=== PATIENT | female | born 1970 | race Caucasian/White ===

== ENCOUNTER 2019-08-09 15:10 | Emergency (ER) | payer OTHER, SELFPAY ==
[2019-08-09 15:11] VITALS: BP 150/113; PULSE 81; RESP 16; TEMP 36.3; O2SAT 99; BMI 23.1
--- NOTE | 2019-08-09 15:24 | RAD_ITS ---
STUDY: X-RAY - RIGHT HAND REASON FOR EXAM: Female, 49 years old. SWING SET FELL ON PT WHILE MOWING. LACERATION TO INDEX FINGER, PAIN TECHNIQUE: 3 view(s) of the hand. COMPARISON: None. FINDINGS: Normal radiocarpal articulation. Normal distal radioulnar joint. Normal visualized carpal bones. Normal carpal articulations Normal carpometacarpal articulation of the thumb. Normal second through fifth carpometacarpal joints. Normal metacarpi. Normal metacarpophalangeal joint of the thumb. Normal interphalangeal joint of the thumb. Normal proximal and distal phalanges of the thumb. Normal metacarpophalangeal joints of the second through fifth fingers. Normal proximal and distal interphalangeal joints of the second through fifth fingers. Normal phalanges of the second through fifth fingers. Second digit soft tissue swelling. RAD/Hand Min 3 Views IMPRESSION: No acute osseous injury is evident. Electronically Signed: Markus Baltazar MD at 16:09 EDT Tel , Service support ,
--- NOTE | 2019-08-09 15:33 | ED.VIS.GEN ---
History of Present Illness Chief Complaint: Laceration Informant: Patient Onset: Today Narrative: She presents with laceration to her left thumb. She was mowing on a 0 turn mower and tried to move underneath a swing set. The swing set caught on the mower and the swing set fell on top of her. She has a V shaped laceration over the flexor surface of her left thumb. She is unsure of her last tetanus update. Past Medical History - Allergies and Home Meds Allergies/Adverse Reactions: Allergies pistachio nut Allergy (Verified 08/09/19 15:45) Swelling Primary Care Physician: Tana Mariee MD [Primary Care Provider] - Smoking Status: Never smoker Review of Systems General: Denies: Chills, Fever Eyes: Denies: Visual changes - bilaterally ENT: Denies: Bilateral ear pain Cardiovascular: Denies: Chest pain Respiratory: Denies: Dyspnea, Cough Gastrointestinal: Denies: Abdominal pain, Nausea, Vomiting, Diarrhea Genitourinary: Denies: Dysuria Musculoskeletal: Reports: Extremity Pain Skin: Reports: Wounds Neurological: Denies: Headache Hematologic: Denies: Easy bruising, Easy bleeding Allergy: Denies: Uticaria Physical Exam Vital Signs/Narrative: Vital Signs Temp Pulse Resp BP Pulse Ox 08/09/19 15:11 97.4 F L 81 16 150/113 H 99 Inital Vital Signs reviewed: Yes General: Well nourished, Well developed Head: Normocephalic ENT: Moist mucous membranes Neck: Supple Cardiovascular: Regular rate, Regular rhythm Respiratory: No distress, CTA bilaterally Abdomen: Soft, Nontender Extremities: - - Right forearm, hematoma with small abrasion noted to the proximal right forearm. Good range of motion. Right hand, skin abrasion/avulsion between the third and fourth finger webspace as well as over the extensor surface of the left index finger. No full-thickness lacerations that are amenable to suture. Left thumb, 8 cm total length laceration and complex pattern. There is a small skin flap that is separate and held only by a small skin stalk. Patient does have good range of motion of her left thumb. She does have decreased sensation over the pad of the left thumb. She is vaguely able to feel single-point pressure. Two-point discrimination is knocked out in this area. Neurological: Alert, Oriented x3 Diagnostic/Tx/Re-eval Impressions Hand X-Ray 08/09/19 15:40 IMPRESSION: No acute osseous injury is evident. Electronically Signed: Markus Baltazar MD at 16:10 EDT Tel , Service support , 08/09/19 15:24 Hand Min 3 Views [RAD] Stat 08/09/19 15:40 Hand Min 3 Views [RAD] Stat 08/09/19 16:35 Forearm 2 Views [RAD] Stat - Medical Decision Making Tetanus update was provided. Patient was given 1 tab of [place]am[place]. Left thumb was anesthetized with 4 cc of 2% lidocaine. This was performed in both digital and local block. Wound is cleansed. There is a separate skin flap held only by a loose piece of skin. I did advise the patient not sure if this flap will survive with intact blood flow. Skin was tacked back down with a combination of 5-0 and 4-0 nylon sutures. Due to a small arterial bleed 3 sutures with 5-0 rapid Vicryl were placed deep. ED Disposition - Plan for ED Patient: Disposition: Home or Assisted Living Diagnosis: Laceration, Nerve injury Instructions: ED Laceration Ext Sutr Stap Tape Prescriptions: Hydrocodone Bitart/Apap 5-325 [Chamois 5MG-325MG] 1 tablet PO Q6H PRN PRN 3 Days #10 tablet PRN Reason: Pain Transmission Status: Sent to [facility] Additional Instructions: Follow-up with hand surgery this week as discussed.
--- NOTE | 2019-08-09 15:40 | RAD_ITS ---
STUDY: X-RAY - LEFT HAND REASON FOR EXAM: Female, 49 years old. SWING SET FELL ON PT WHILE MOWING. LACERATION TO THUMB, PAIN TECHNIQUE: 3 view(s) of the hand. COMPARISON: None. FINDINGS: Normal radiocarpal articulation. Normal distal radioulnar joint. Normal visualized carpal bones. Normal carpal articulations Normal carpometacarpal articulation of the thumb. Normal second through fifth carpometacarpal joints. Normal metacarpi. Normal metacarpophalangeal joint of the thumb. Normal interphalangeal joint of the thumb. Normal proximal and distal phalanges of the thumb. Normal metacarpophalangeal joints of the second through fifth fingers. Normal proximal and distal interphalangeal joints of the second through fifth fingers. Normal phalanges of the second through fifth fingers. First digit soft tissue injury. RAD/Hand Min 3 Views IMPRESSION: No acute osseous injury is evident. Electronically Signed: Markus Baltazar MD at 16:10 EDT Tel , Service support ,
[2019-08-09] MEDS: HYDROcodone Bitartrate/Apap 5/325 Tablet PO (15:42)
[2019-08-09] MEDS: Diphth,Pertuss(Acell),Tet Vac 0.5 ML Vial IM (15:43)
--- NOTE | 2019-08-09 16:35 | RAD_ITS ---
STUDY: X-RAY - RIGHT RADIUS AND ULNA REASON FOR EXAM: Female, 49 years old. SWING SET FELL ON PT WHILE MOWING. STS, BRUISING TECHNIQUE: 2 view(s) of the forearm. COMPARISON: None. FINDINGS: There is no demonstrated soft tissue swelling. Normal visualized radius. Normal visualized ulna. RAD/Forearm 2 Views IMPRESSION: Normal x-ray examination of the radius and ulna. Electronically Signed: Gabe Cheng MD at 17:02 EDT , Service support ,
== END 2019-08-09 17:00 | disposition home or self-care (01) ==
LOC: ED 16:53
PROVIDERS: Emergency Provider Emergency Medicine; PCP Internal Medicine
DX: S61.012A Laceration without foreign body of left thumb without damage to nail, initial encounter (principal); S64.12XA Injury of median nerve at wrist and hand level of left arm, initial encounter; W20.8XXA Other cause of strike by thrown, projected or falling object, initial encounter; Y93.H9 Activity, other involving exterior property and land maintenance, building and construction; Y92.096 Garden or yard of other non-institutional residence as the place of occurrence of the external cause; Y99.9 Unspecified external cause status; Z23 Encounter for immunization
CPT/HCPCS: 12044; 73090; 73130; 90471; 90715; 99284

== ENCOUNTER → 2024-09-18 | Outpatient (CLI) | payer OTHER, SELFPAY ==
--- OUTSIDE RECORDS SUMMARY | 2024-09-18 19:51 | XMS RPT_ITS | CCD ---
Author Organization [facility] Care Team Providers Care Supervisor Publications Name Role Phone George LASSITER, Iván Najera Unavailable [phone] Kodi LASSITER, Delilah Primary Care Provider [phone] Kodi LASSITER, Delilah Primary Care Provider [phone] Kodi LASSITER, Delilah Primary Care Provider Older TOBACCO FARMWORKER.FRENCH PASTRY COOK, Yudi Unavailable [phone] GANTA, DELILAH Primary Care Unavailable TESTRAKE, VIOLET Attending Unavailable GANTA, DELILAH Primary Care Unavailable TESTRAKE, VIOLET Referring Unavailable DAX, CONSTANCE Referring Unavailable DAX, CONSTANCE Attending Unavailable GANTA, DELILAH Primary Care Unavailable DAX, CONSTANCE Referring Unavailable GANTA, DELILAH Primary Care Unavailable GANTA, DELILAH Attending Unavailable GANTA, DELILAH Primary Care Unavailable GANTA, DELILAH Primary Care Unavailable TESTRAKE, VIOLET Referring Unavailable GANTA, DELILAH Primary Care Unavailable OLDER, YUDI Referring Unavailable OLDER, YUDI Attending Unavailable GANTA, DELILAH Primary Care Unavailable GANTA, DELILAH Primary Care Unavailable TESTRAKE, VIOLET Referring Unavailable Kodi LASSITER, Dr. Fajardo Primary Care Provider [phone] Dr. Delilah Devries MD Referring Provider Alejandro Venegas Attending Provider Allergies Allergy Classification Reported Allergen(s) Allergy Type Date of Onset Reaction(s) Facility (1 source) PLANT POLLENS; Translations: [PLANT POLLENS] allergy to substance 0 [facility] Work Phone: (1 source) PISTACHIOS; Translations: [PISTACHIOS] food allergy 0 [facility] Work Phone: (20 sources) pistachio nut allergenic extract; Translations: [PISTACHIO NUT] Drug Allergy 9 Swelling [facility] (20 sources) Seasonal allergy; Translations: [SEASONAL ALLERGIES] Allergy to substance 3 Itching [facility] Work Phone: Medications Current Medications Medication Drug Class(es) Dates Sig (Normalized) Sig (Original) cholecalciferol 0.05 mg oral capsule (2 sources) Vitamin D Start: 08-24-2024 take 1 capsule by mouth once daily Cholecalciferol, Vitamin D3, (VITAMIN D-3) 50 mcg (2,000 unit) cap Take 1 capsule by mouth once daily. 08/24/2024 Active estradiol 0.1 mg/ml vaginal cream (10 sources) Estrogen Start: 06-12-2024 estradiol (ESTRACE) 0.01 % (0.1 mg/gram) vaginal cream Use 0.5g vaginally at bedtime for 2 weeks then 1-3 time/weeks for maintenance. 42.5 g 2 06/12/2024 Active multivitamin tablet (2 sources) Start: 08-24-2024 take 1 tablet by mouth once daily multivitamin tablet Take 1 tablet by mouth once daily. 08/24/2024 Active NEOMYCIN/POLYMYXIN B SULF/HC ([id number]-[id number]-EB TOPICAL) (20 sources) apply 1 drop(s) topically two times weekly NEOMYCIN/POLYMYXIN B SULF/HC (NEOMYCIN-POLYMYXI N-HC TOPICAL) Apply 1 Drop to affected area twice a week. Active apply 1 drop(s) topi gabe two times weekly NEOMYCIN/POLYMYXIN B SULF/HC (MTUXMOXS-ZSWKHQKZN-IA TOPICAL) Apply 1 Drop to affected area twice a week. 0 Active Comment on above: Apply 1 Drop to affe cted area twice a week. Completed/Discontinued Medications Medication Drug Class(es) Dates Sig (Normalized) Sig (Original) acetaminophen 500 mg oral tablet (1 source) Start: 08-11-2019 TYLENOL EXTRA STRENGTH 500 MG TABS 2 tablets as needed ACETAMINOPHEN [id number] Iván Vazquez MD acetaminophen 325 mg / HYDROcodone bitartrate 5 mg oral tablet (3 sources) Opioid Agonist Start: 08-09-2019 End: 08-12-2019 take 1 tablet by mouth every six hours as needed Hydrocodone-Acetami nophen Discontinued 1 TABLET PO EVERY 6 HOURS NEEDED 10 3 August 09, 2019 4:47pm August 12, 2019 12:02am Start: 08-09-2019 End: 08-12-2019 NORCO 5-325 MG TABS one tabl et every 6 hours HYDROCODONE-ACETAMINOPHEN [id number] Iván Vazquez MD dexamethasone 0.001 mg/mg / tobramycin 0.003 mg/mg ophthalmic ointment (20 sources) Aminoglycoside Antibacterial, Corticosteroid Start: 08-10-2019 TOBRADEX 0.3-0.1 % OINT 1 time weekly as directed TOBRAMYCIN-DEXAMETHASONE [id number] Marcela Burden Start: 08-29-2016 tobramycin-dex amethasone (TOBRADEX) ophthalmic ointment Use 1 application in both eyes daily at bedtime. 1 Tube 5 08/29/2016 Active Start: 08-29-2016 tobramycin-dex amethasone (TOBRADEX) ophthalmic ointment Use 1 application in both eyes daily at bedtime. 1 Tube 5 08/29/2016 Active Comment on above: Use 1 application in both eyes daily at bedtime. doxycycline monohydrate 50 mg oral tablet (20 sources) Tetracycline-class Drug Start: 08-09-2019 End: 09-18-2024 Doxycycline Monohydrate 50 mg tablet TAKE 1 TABLET ONCE DAILY 90 tablet 3 07/23/2024 08/24/2024 Discontinued Comment on above: TAKE 1 TABLET ONCE D AILY NORETHINDRONE (3 sources) Start: 08-10-2019 LOYDA 0.35 MG TABS 1 tablet once daily NORETHINDRONE [id number] Marcela Burden Start: 08-09-2019 take 0.35 mg by mout h once daily Norethindrone (Contraceptive) Active 0.35 MG PO DAILY August 09, 2019 3:45pm Problems Active Problems Problem Classification Problem Date Documented Date Episodic/Chronic Acquired foot deformities (4 sources) Hallux valgus (acquired), left foot; Translations: [Hallux valgus (acquired)] Onset: 07-16-2024 07-16-2024 Chronic Acquired foot deformities (4 sources) Hallux valgus (acquired), right foot; Translations: [Hallux valgus (acquired)] Onset: 07-16-2024 07-16-2024 Chronic Acquired foot deformities (2 sources) Bunion; Translations: [Bunion of unspecified foot] Onset: 08-24-2024 08-24-2024 Episodic Crushing injury or internal injury (1 source) Injury of radial blood vessel; Translations: [Unspecified injury of radial artery at wrist and hand level of left arm, initial encounter] Onset: 08-11-2019 08-11-2019 Episodic Immunizations and screening for infectious disease (13 sources) Patient encounter status; Translations: [Encounter for screening for human papillomavirus (HPV)] Onset: 08-24-2024 Episodic Nutritional deficiencies (1 source) Vitamin D deficiency; Translations: [Vitamin D deficiency, unspecified] 08-14-2024 Chronic Open wounds of extremities (1 source) Laceration of hand; Translations: [Laceration without foreign body of left hand, initial encounter] Onset: 08-11-2019 08-11-2019 Episodic Open wounds of head; neck; and trunk (2 sources) Laceration - injury; Translations: [Laceration] 08-10-2019 Episodic Other circulatory disease (2 sources) Abnormal peripheral pulse; Translations: [Other specified symptoms and signs involving the circulatory and respiratory systems] 07-16-2024 Episodic Other circulatory disease (1 source) Elevated blood pressure; Translations: [Elevated blood-pressure reading, without diagnosis of hypertension] 08-24-2024 Episodic Other circulatory disease (1 source) Elevated blood-pressure reading without diagnosis of hypertension; Translations: [Elevated blood-pressure reading, without diagnosis of hypertension] 09-07-2024 Episodic Other circulatory disease (2 sources) Elevated blood-pressure reading, without diagnosis of hypertension; Translations: [Elevated BP without diagnosis of hypertension] Onset: 08-24-2024 Episodic Other circulatory disease (1 source) Other specified symptoms and signs involving the circulatory and respiratory systems; Translations: [Diminished pulses in lower extremity] Onset: 07-16-2024 Episodic Other connective tissue disease (3 sources) Pain in both feet; Translations: [Pain in right foot] 07-14-2024 Episodic Other connective tissue disease (1 source) Pain in right foot; Translations: [Bilateral foot pain] Onset: 07-16-2024 Episodic Other connective tissue disease (1 source) Pain in left foot; Translations: [Bilateral foot pain] Onset: 07-16-2024 Episodic Other female genital disorders (1 source) Vaginal dryness; Translations: [Other specified noninflammatory disorders of vagina] 06-12-2024 Episodic Other inflammatory condition of skin (1 source) Ocular rosacea; 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] 08-24-2024 Chronic Other inflammatory condition of skin (1 source) Other rosacea; Translations: [Ocular rosacea] Onset: 08-24-2024 Chronic Other injuries and conditions due to external causes (1 source) Injury to digital nerve, upper limb; Translations: [Injury of digital nerve of unspecified finger, initial encounter] Onset: 08-11-2019 08-11-2019 Episodic Other injuries and conditions due to external causes (2 sources) Nerve injury; Translations: [Other injury of unspecified body region, initial encounter] 08-10-2019 Episodic Other liver diseases (1 source) Elevated liver enzymes level; Translations: [Abnormal levels of other serum enzymes] 09-07-2024 Episodic Other liver diseases (1 source) Abnormal levels of other serum enzymes; Translations: [Elevated liver enzymes] Onset: 09-07-2024 Episodic Other non-traumatic joint disorders (2 sources) Toe joint rigid 07-16-2024 Episodic Other screening for suspected conditions (not mental disorders or infectious disease) (1 source) Encounter for screening mammogram for malignant neoplasm of breast; Translations: [Encounter for screening mammogram for breast cancer] Onset: 06-12-2024 Episodic Residual codes; unclassified (1 source) Family history of malignant neoplasm of skin; Translations: [Family history of malignant neoplasm of other organs or systems] 08-24-2024 Episodic Residual codes; unclassified (1 source) Family history of malignant neoplasm of other organs or systems; Translations: [Family history of malignant neoplasm of skin] Onset: 08-24-2024 Episodic Screening and history of mental health and substance abuse codes (2 sources) Encounter for screening for depression; Translations: [Encounter for screening examination for other mental health and behavioral disorders] Onset: 08-24-2024 Episodic Unclassified (2 sources) Patient encounter status 06-12-2024 Unclassified (1 source) Hallux valgus of left foot 07-16-2024 Unclassified (1 source) Hallux valgus of right foot 07-16-2024 Varicose veins of lower extremity (2 sources) Varicose veins of lower extremity; Translations: [Asymptomatic varicose veins of right lower extremity] Onset: 08-24-2024 08-24-2024 Episodic Past or Other Problems Problem Classification Problem Date Documented Da te Episodic/Chronic Hypertension complicating ; childbirth and the puerperium (12 sources) Severe pre-eclampsia; Translations: [Severe pre-eclampsia, unspecified trimester] Onset: 04-05-2011 Resolved: 04-20-2011 04-20-2011 Episodic Inflammation; infection of eye (except that caused by tuberculosis or sexually transmitteddisease) (20 sources) Cicatrizing conjunctivitis; Translations: [Other conjunctivitis] Onset: 05-29-2017 05-29-2017 Episodic Nonmalignant breast conditions (12 sources) Inflammatory disorder of breast; Translations: [Mastitis without abscess] Onset: 04-08-2012 Resolved: 04-15-2012 04-15-2012 Episodic Other complications of ; puerperium affecting management of mother (12 sources) Other disorders of breast associated with and the puerperium; Translations: [Other and unspecified disorder of breast associated with childbirth, condition or complication] Onset: 04-08-2012 Resolved: 04-15-2012 04-15-2012 Episodic Other complications of (12 sources) Advanced maternal age ; Translations: [Elderly multigravida, unspecified as to episode of care or not applicable] Onset: 12-28-2010 Resolved: 04-20-2011 04-20-2011 Episodic Other connective tissue disease (20 sources) Dysfunction of posterior tibial tendon; Translations: [Posterior tibial tendinitis, unspecified leg] Onset: 06-24-2017 06-24-2017 Episodic Other connective tissue disease (20 sources) Plantar fasciitis of right foot; Translations: [Plantar fascial fibromatosis] Onset: 06-24-2017 06-24-2017 Episodic Other eye disorders (20 sources) Meibomian gland dysfunction of bilateral eyes; Translations: [Meibomian gland dysfunction right eye, upper and lower eyelids] Onset: 05-29-2017 05-29-2017 Episodic Other eye disorders (20 sources) Malposition of eyelashes; Translations: [Trichiasis without entropion right lower eyelid] Onset: 05-29-2017 05-29-2017 Episodic Other eye disorders (20 sources) Symblepharon, bilateral; Translations: [Symblepharon] Onset: 05-29-2017 05-29-2017 Episodic Unclassified (1 source) Problem Results Test Name Value Interpretation Reference Range Facility [facility] 09-07-2024 CNOV Office Visit (INTMWS ) ANJEL MILLS ([id number]) 1970 F Date Time Provider Department 09/07/24 8:00 AM DELILAH DEVRIES INTMWS During your visit today, we recorded the following information about you: Pulse Blood pressure Weight 60/minute 155/93 63.9 kg Delilah Devries MD 09/07/2024 1:21 PM Signed Reason for Visit Follow up HPI Anjel Mills is a 54-year-old female presenting for follow-up on elevated blood pressure readings. Anjel was seen a few weeks ago and had a blood pressure reading in the 140s. She was advised to monitor her blood pressure daily in the morning, which she has been doing using her home blood pressure cuff. She reports that her readings at home have been in the 130s, sometimes lower, with the highest reading being 147/95. She takes her blood pressure three times each morning after sitting quietly. However, she notes that her blood pressure was higher when taken with her home cuff today, reading 160/?. She has a family history of hypertension. She reports eating a healthy diet and being very active, engaging in gardening and farm work. She consumes homemade sauerkraut and pickles regularly. She is postmenopausal and has experienced hot flashes. She drinks 1-2 beers per week but recently consumed 2-3 beers per day during a week-long vacation in [place]. She denies heavy salt use but does use seasonings like [place]'s and pepper. Anjel has a history of eye issues for which she was taking doxycycline monohydrate since 2016 but stopped about a month ago. She currently takes a multivitamin and vitamin D supplement. She recently had blood work done, which showed elevated cholesterol and liver enzymes. She also had an ASAD test done by Dr. Hyman a couple of weeks ago. Social History Tobacco Use Smoking status: Never Passive exposure: Never Smokeless tobacco: Never Vaping Use Vaping status: Never Used Substance Use Topics Alcohol use: Yes Comment: Rarely Drug use: No Past medical history, appointments, medications, allergies reviewed. Pertinent Lab/Diagnostic Studies are reviewed and discussed today Current Outpatient Medications: multivitamin tablet Cholecalciferol, Vitamin D3, (VITAMIN D-3) 50 mcg (2,000 unit) cap estradiol (ESTRACE) 0.01 % (0.1 mg/gram) vaginal cream tobramycin-dexamethason e (TOBRADEX) ophthalmic ointment NEOMYCIN/POLYMYXIN B SULF/HC (UKYRVVXT-[id number]-EW TOPICAL) Health Maintenance There are no preventive care reminders to display for this patient.@ Review Of Systems Constitutional: (-) insomnia Physical Exam BP 155/93 Pulse 60 Wt 63.9 kg (140 lb 12.8 oz) LMP (LMP Unknown) SpO2 100% BMI 24.55 kg/m? GENERAL: NAD, alert and oriented SKIN: unremarkable, no rash or skin lesions. HEAD: normocephalic EYES: PERRLA, EOMI, conjunctiva clear LUNGS: Clear to auscultation bilaterally, no wheezes/rhonchi/rales. HEART: Regular rate and rhythm, no murmurs. No ectopy. EXTREMITIES: Normal, No deformities, No skin discoloration, No edema. NEURO: Awake, alert and oriented x3, cranial nerves II-XII grossly intact, normal gait, no involuntary motions Labs: - Lipid Panel: Elevated cholesterol - Liver Function Tests: Elevated enzymes - Vitamin D test: Results not stated Tests: - Ankle-Brachial Index: Normal on the left, normal at rest on the right, no evidence of peripheral vascular disease Assessment and Plan 1. Elevated liver enzymes (R74.8) Recent lab results indicate elevated liver enzymes. Patient reports increased alcohol consumption (2-3 beers daily) during a recent vacation, which is higher than her usual intake of 1-2 beers per week. Patient has been off Doxycycline monohydrate for about a month, which she had been taking since 2016 for eye issues. - Recheck liver enzymes in 3 months. - Advised patient to monitor and limit alcohol intake. 2. Elevated BP without diagnosis of hypertension (R03.0) Home blood pressure readings generally in the 130s, with occasional higher readings up to 147/95 mmHg. In-office BP today was 143/80 mmHg. Patient is postmenopausal and has a family history of hypertension. Recent ASAD test showed normal results, indicating no significant peripheral vascular disease. ASCVD risk is 2.8%. - Advised patient to reduce dietary sodium intake, including hidden sources such as canned foods, chips, and pickles. - Encouraged regular exercise, aiming for at least 30 minutes of moderate-intensity activity 5 days a week. - Monitor blood pressure at home using a calibrated arm cuff. - Follow-up in 3 months to reassess blood pressure and liver enzymes. - If blood pressure remains elevated, consider initiating Norvasc 2.5 mg. Voice recognition software was used to compose this office note. Please excuse any unintended typographical errors. Recording using FirmPlay software for draft documentation of (more content not included)... Normal [facility] PVR ANK PRESS TAVO VAS LABon 08-28-2024 PVR ANK PRESS TAVO VAS LAB Non-Invasive Vascular Laboratory [facility], [facility] Lower Extremity Arterial Physiology Study Bilateral/Complete Date of service/time: 08/28/2024 11:19:40 AM Name: MRS. ANJEL MILLS Date of : 1970 Age: 54 years Gender: F Clinical Indication Decreased pulses. TECHNIQUE -------- An arterial physiological examination was performed, including measurement of blood pressures using continuous wave Doppler and recording of plethysmographic with or without Doppler waveforms at the below-mentioned limb segments. FINDINGS -------- RIGHT SIDE AT REST Right Doppler Waveforms Dorsalis pedis: Multiphasic. Post tibial: Multiphasic. Right Pressures Brachial: 140 mmHg Ankle dorsalis pedis: 178 mmHg ASAD: 1.24 Ankle posterior tibial: 185 mmHg ASAD: 1.29 Digit: 157 mmHg Right PVR Waveforms Ankle: Normal. Transmetatarsal: Normal. Digit: Normal. LEFT SIDE AT REST Left Doppler Waveforms Dorsalis pedis: Multiphasic. Post tibial: Multiphasic. Left Pressures Brachial: 143 mmHg Ankle dorsalis pedis: 166 mmHg ASAD: 1.16 Ankle posterior tibial: 174 mmHg ASAD: 1.22 Digit: 164 mmHg Left PVR Waveforms Ankle: Normal. Transmetatarsal: Normal. Digit: Normal. IMPRESSION RIGHT SIDE Resting right ankle brachial index: 1.29 Right toe brachial index: 1.10 Normal ankle brachial index at rest in the right leg. Normal toe brachial index at rest in the right leg. Right ankle: Normal at rest. LEFT SIDE Resting left ankle brachial index: 1.22 Left toe brachial index: 1.15 Normal ankle brachial index at rest in the left leg. Normal toe brachial index at rest in the left leg. Left ankle: Normal at rest. Technologist: Ayde Lunsford RVT Ordering physician: VIOLET HYMAN Interpreting physician: Arnol Bell MD, MSCR, RPVI Final CC [employer] Image : [id number] ISUID See Link below for Image Normal [facility] CBC panel Auto (Bld)on 08-24 Erythrocyte distribution width (RBC) [Ratio] 12.3 % Normal 11.5-15.[address] [facility] Comment on above: Order Comment: Speci kaleigh Type: BLOOD SPECIMEN Ordering Facility: [facility] Address: [address] [place] [address] Performed By: #### 2 4323-8, 23839-3 #### [facility] CLIA [id number] [address] [place] [address] [place] Hematocrit (Bld) [Volume fraction] 40.9 % Normal 36.0-46.[address] [facility] Comment on above: Order Comment: Sumit farris Type: BLOOD SPECIMEN Ordering Facility: [facility] Address: [address] [place] [address] Performed By: #### 2 4323-8, 92468-1 #### [facility] CLIA [id number] [address] [place] [address] [place] Hemoglobin (Bld) [Mass/Vol] 13.8 g/dL Normal 11.5-15.[address] [facility] Comment on above: Order Comment: Speci men Type: BLOOD SPECIMEN Ordering Facility: [facility] Address: [address] [place] [address] Performed By: #### 2 4323-8, 00508-1 #### [facility] CLIA [id number] [address] [place] [address] [place] MCH (RBC) [Entitic mass] 31.4 pg Normal 26.0-34.[address] [facility] Comment on above: Order Comment: Speci men Type: BLOOD SPECIMEN Ordering Facility: [facility] Address: [address] [place] [address] Performed By: #### 2 4323-8, 71363-1 #### [facility] CLIA [id number] [address] [place] [address] [place] MCHC (RBC) [Mass/Vol] 33.7 g/dL Normal 30.5-36.[address] [facility] Comment on above: Order Comment: Speci men Type: BLOOD SPECIMEN Ordering Facility: [facility] Address: [address] [place] [address] Performed By: #### 2 4323-8, 56064-9 #### [facility] CLIA [id number] [address] [place] [address] [place] MCV (RBC) [Entitic vol] 93.0 fL Normal 80.0-100.[address] [facility] Comment on above: Order Comment: Speci men Type: BLOOD SPECIMEN Ordering Facility: [facility] Address: [address] [place] [address] Performed By: #### 2 4323-8, 10005-4 #### [facility] CLIA [id number] [address] [place] [address] [place] Nucleated RBC (Bld) [#/Vol] 10*3/uL Normal <0.[address] [facility] Comment on above: Order Comment: Speci men Type: BLOOD SPECIMEN Ordering Facility: [facility] Address: [address] [place] [address] Performed By: #### 2 4323-8, 82471-7 #### [facility] CLIA [id number] [address] [place] [address] [place] Platelet mean volume (Bld) [Entitic vol] 10.6 fL Normal 9.0-12.[address] [facility] Comment on above: Order Comment: Speci men Type: BLOOD SPECIMEN Ordering Facility: [facility] Address: [address] [place] [address] Performed By: #### 2 4323-8, 50571-8 #### [facility] CLIA [id number] [address] [place] [address] [place] Platelets (Bld) [#/Vol] 267 10*3/uL Normal 150-[address] [facility] Comment on above: Order Comment: Speci men Type: BLOOD SPECIMEN Ordering Facility: [facility] Address: [address] [place] [address] Performed By: #### 2 4323-8, 85340-9 #### [facility] CLIA [id number] [address] [place] [address] [place] RBC (Bld) [#/Vol] 4.40 10*6/uL Normal 3.90-5.20 [facility] Comment on above: Order Comment: Speci men Type: BLOOD SPECIMEN Ordering Facility: [facility] Address: [address] [place] [address] Performed By: #### 2 4323-8, 14393-3 #### [facility] CLIA [id number] [address] [place] [address] [place] WBC (Bld) [#/Vol] 6.59 10*3/uL Normal 3.70-11.00 [facility] Comment on above: Order Comment: Speci men Type: BLOOD SPECIMEN Ordering Facility: [facility] Address: [address] [place] [address] Performed By: #### 2 4323-8, 78516-9 #### [facility] CLIA [id number] [address] [place] [address] [place] CNOVon 08-24-2024 CNOV Office Visit (INTMWS ) ANJEL MILLS ([id number]) 1970 F Date Time Provider Department 08/24/24 7:20 AM YUDI FRANCO During your visit today, we recorded the following information about you: Pulse Respiration Blood pressure Weight 65/minute 16/minute 136/78 63 kg Yudi Franco APRN.[facility] PA[facility] COOK 08/24/2024 8:47 AM Signed CC: Patient presents with: Yearly Exam: Annual Physical HPI Anjeljessika Mills is a 54 year old female who presents today for annual exam Recording using [employer] software for draft documentation of the visit was discussed with the patient/authorized publications sales representative; all questions welcomed and answered. 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 - Uses neomycin and tobramycin ophthalmic ointments PRN for this instead - Currently using estradiol vaginal cream. - Family history includes melanoma - follows wit dermatology - Up to date on mammograms; last done in June, recommended follow up in 10 years - Last colonoscopy in 2020; normal results. 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 - Conscious of maintaining a healthy diet. Bunions: - Seen by Dr. Hyman in July for bunions; considering surgery. Started on Vit D to maintain adequate levels Varicose Veins: - Reports varicose veins; denies pain, redness, or discomfort. Elevated Blood Pressure: - Reports white coat syndrome. - Owns a blood pressure cuff but has not been checking blood pressure regularly. - Recent blood pressure readings average 136/78 mmHg. - Family history of heart disease. - denies chest pressure, shortness of breath, headaches, dizziness, edema, palpitations, or exercise intolerance. REVIEW OF SYSTEMS General: no fevers, no chills, no night sweats, no recurrent infections, no change in appetite, no change in energy, and no significant changes in weight Respiratory: no cough, no wheezing, no shortness of breath, no hemoptysis Cardiovascular: no chest pain, no chest pressure, no palpitations, and no swelling GI: No nausea, vomiting, or diarrhea : No history of dysuria, frequency or incontinence Psych: phq2 is 0, gad2 is 0 Endocrine: no fatigue, no cold intolerance, no heat intolerance, no polyuria, no polyphagia, and no polydipsia Neurologic: No headache, weakness, numbness dizziness, memory loss, syncope. PAST MEDICAL HISTORY Diagnosis Date Abnormal glandular Papanicolaou smear of cervix 2009 Abn. Pap smear (cervix) Ocular rosacea PAST SURGICAL HISTORY Procedure Laterality Date COLPOSCOPY CERVIX UPPER/ADJACENT VAGINA Colposcopy EYE SURGERY HX EYE SURGERY PROCEDURE 06/19/2013 Right Biopsy Conj./Abalation AND Cryo Lashes EYE SURGERY PROCEDURE 09/18/2013 Right Upper Eyelid HPG/ Rotation EYE SURGERY PROCEDURE 02/11/2014 RLL HPG/Rotation EYELID SURGERY PROCEDURE Right 02/18/2015 RLL hpg/rotation with elschnig skin PAST SURGICAL HISTORY OF fracture of left elbow PAST SURGICAL HISTORY OF 08/2019 left thumb; skin graft PCHG C SECTION DELIVERY due to preclampsia SKIN GRAFT HX Left 07/2019 Skin graft left thumb following exploration d/t traumatic laceration ALLERGIES P[place]achio Nut and Seasonal Allergies MEDICATIONS multivitamin tablet Take 1 tablet by mouth once daily. Cholecalciferol, Vitamin D3, (VITAMIN D-3) 50 mcg (2,000 unit) cap Take 1 capsule by mouth once daily. estradiol (ESTRACE) 0.01 % (0.1 mg/gram) vaginal cream Use 0.5g vaginally at bedtime for 2 weeks then 1-3 time/weeks for maintenance. tobramycin-dexamethason e (TOBRADEX) ophthalmic ointment Use 1 application in both eyes daily at bedtime. NEOMYCIN/POLYMYXIN B SULF/HC (ZVBCAXHH-[id number]-VF TOPICAL) Apply 1 Drop to affected area twice a week. FAMILY HISTORY Problem Relation Age of Onset other (Other) Mother she had two sets of twins and one cantrell Stroke Father Cancer Father melenoma Hypertension Father Diabetes Sister Diabetes Brother other (pulmonary embolism) Brother twin brother Heart Maternal Grandfather Heart Paternal Grandfather Breast Cancer Maternal Aunt 80's at time of diagnosis No Ocular Disease No Family History Social History Tobacco Use Smoking status: Never Passive exposure: Never Smokeless tobacco: Never Vaping Use Vaping status: Never Used Substance Use Topics Alcohol use: Yes Comment: Rarely Drug use: No PHYSICAL EXAM BP 136/78 Pulse 65 Resp 16 Wt 63 kg (139 lb) LMP (LMP Unknown) SpO2 98% BMI 24.23 kg/m? General Appearance: well appearing, in no acute distress, alert Pysch: mood and affect broad and appropriate Eyes: conjunctiva pink and moist, no icterus, sclera white, non-injected Neck: Thyroid normal size and symmetric (more content not included)... Normal [facility] Comprehensive metabolic 2000 panelon 08-24-2024 Albumin [Mass/Vol] 4.2 g/dL Normal 3.9-4.9 [facility] Comment on above: Order Comment: Speci men Type: BLOOD SPECIMEN Ordering Facility: [facility] Address: [address] [place] [address] Performed By: #### 2 4323-8, 85694-0 #### [facility] CLIA [id number] [address] [place] [address] [place] ALP [Catalytic activity/Vol] 129 U/L High 34-[address] [facility] Comment on above: Order Comment: Speci men Type: BLOOD SPECIMEN Ordering Facility: [facility] Address: [address] [place] [address] Performed By: #### 2 4323-8, 38932-0 #### [facility] CLIA [id number] [address] [place] [address] [place] ALT [Catalytic activity/Vol] 46 U/L High 7-[address] [facility] Comment on above: Order Comment: Speci men Type: BLOOD SPECIMEN Ordering Facility: [facility] Address: [address] [place] [address] Performed By: #### 2 4323-8, 02605-9 #### [facility] CLIA [id number] [address] [place] [address] [place] Anion gap [Moles/Vol] 8 mmol/L Normal 8-[address] [facility] Comment on above: Order Comment: Speci men Type: BLOOD SPECIMEN Ordering Facility: [facility] Address: [address] [place] [address] Performed By: #### 2 4323-8, 19895-8 #### [facility] CLIA [id number] [address] [place] [address] [place] AST [Catalytic activity/Vol] 45 U/L High 13-[address] [facility] Comment on above: Order Comment: Speci men Type: BLOOD SPECIMEN Ordering Facility: [facility] Address: [address] [place] [address] Performed By: #### 2 4323-8, 61263-1 #### [facility] CLIA [id number] [address] [place] [address] [place] Bilirubin [Mass/Vol] 0.4 mg/dL Normal 0.2-1.[address] [facility] Comment on above: Order Comment: Speci men Type: BLOOD SPECIMEN Ordering Facility: [facility] Address: [address] [place], [place] [address] Performed By: #### 2 4323-8, 09865-3 #### [facility] CLIA [id number] [address] [place], [place] [address] [place] Calcium [Mass/Vol] 9.0 mg/dL Normal 8.5-10.2 [facility] Comment on above: Order Comment: Speci men Type: BLOOD SPECIMEN Ordering Facility: [facility] Address: [address] [place] [address] Performed By: #### 2 4323-8, 70964-8 #### [facility] CLIA [id number] [address] [place] [address] [place] Chloride [Moles/Vol] 108 mmol/L High 98-[address] [facility] Comment on above: Order Comment: Speci men Type: BLOOD SPECIMEN Ordering Facility: [facility] Address: [address] [place] [address] Performed By: #### 2 4323-8, 63152-6 #### [facility] CLIA [id number] [address] [place] [address] [place] CO2 [Moles/Vol] 25 mmol/L Normal 22-[address] [facility] Comment on above: Order Comment: Speci men Type: BLOOD SPECIMEN Ordering Facility: [facility] Address: [address] [place] [address] Performed By: #### 2 4323-8, 83442-5 #### [facility] CLIA [id number] [address] [place] [address] [place] Creatinine [Mass/Vol] 0.58 mg/dL Normal 0.58-0.[address] [facility] Comment on above: Order Comment: Speci men Type: BLOOD SPECIMEN Ordering Facility: [facility] Address: [address] [place] [address] Performed By: #### 2 4323-8, 66575-2 #### [facility] CLIA [id number] [address] [place] [address] [place] Creatinine and Glomerular filtration rate.predicted panel (S/P/Bld) 108 mL/min/1.73m??? Normal >=[address] [facility] Comment on above: Order Comment: Speci men Type: BLOOD SPECIMEN Ordering Facility: [facility] Address: [address] [place], [place] [address] Result Comment: Nicole mated Glomerular Filtration Rate (eGFR) is calculated using the 2020 CKD-EPI creatinine equation. This equation utilizes serum creatinine, sex, and age as parameters. The creatinine assay has traceable calibration to isotope dilution-mass spectrometry. Refer to KDIGO guidelines for clinical interpretation. In patients with unstable renal function, e.g. those with acute kidney injury, the eGFR may not accurately reflect actual GFR. Performed By: #### 2 4323-8, 53776-1 #### [facility] CLIA [id number] [address] [place] [address] [place] Glucose [Mass/Vol] 102 mg/dL High 74-99 [facility] Comment on above: Order Comment: Sumit farris Type: BLOOD SPECIMEN Ordering Facility: [facility] Address: [address] [place] [address] Result Comment: The [place] Diabetes Association (ADA) provides guidance for cutoff values for fasting glucose and random glucose. The ADA defines fasting as no caloric intake for at least 8 hours. Fasting plasma glucose results between 100 to 125 mg/dL indicate increased risk for diabetes (prediabetes). Fasting plasma glucose results greater than or equal to 126 mg/dL meet the criteria for diagnosis of diabetes. In the absence of unequivocal hyperglycemia, results should be confirmed by repeat testing. In a patient with classic symptoms of hyperglycemia or hyperglycemic crisis, random plasma glucose results greater than or equal to 200 mg/dL meet the criteria for diagnosis of diabetes. Reference: Standards of Medical Care in Diabetes 2016, [place] Diabetes Association. Diabetes Care. 2016.39(Suppl 1). Performed By: #### 2 4323-8, 14611-5 #### [facility] CLIA [id number] [address] [place] [address] [place] Potassium [Moles/Vol] 4.4 mmol/L Normal 3.7-5.[address] [facility] Comment on above: Order Comment: Sumit farris Type: BLOOD SPECIMEN Ordering Facility: [facility] Address: [address] [place] [address] Performed By: #### 2 4323-8, 34019-4 #### [facility] CLIA [id number] [address] [place] [address] [place] Protein [Mass/Vol] 6.6 g/dL Normal 6.3-8.0 [facility] Comment on above: Order Comment: Speci men Type: BLOOD SPECIMEN Ordering Facility: [facility] Address: [address] [place] [address] Performed By: #### 2 4323-8, 56467-7 #### [facility] CLIA [id number] [address] [place] [address] [place] Sodium [Moles/Vol] 141 mmol/L Normal 136-144 [facility] Comment on above: Order Comment: Speci men Type: BLOOD SPECIMEN Ordering Facility: [facility] Address: [address] [place] [address] Performed By: #### 2 4323-8, 44765-3 #### [facility] CLIA [id number] [address] [place] [address] [place] Urea nitrogen [Mass/Vol] 11 mg/dL Normal 7-[address] [facility] Comment on above: Order Comment: Speci men Type: BLOOD SPECIMEN Ordering Facility: [facility] Address: [address] [place] [address] Performed By: #### 2 4323-8, 75952-4 #### [facility] CLIA [id number] [address] [place] [address] [place] Lipid 1996 panelon 5 Cholesterol [Mass/Vol] 191 mg/dL Normal <[address] [facility] Comment on above: Order Comment: Speci men Type: BLOOD SPECIMEN Ordering Facility: [facility] Address: [address] [place] [address] Result Comment: <200 mg/dL, Desirable 200-239 mg/dL, Borderline high >239 mg/dL, High Performed By: #### 2 4323-8, 11912-0 #### [facility] CLIA [id number] [address] [place] [address] OF [facility] Cholesterol in HDL [Mass/Vol] 42 mg/dL Normal >[address] [facility] Comment on above: Order Comment: Sumit farris Type: BLOOD SPECIMEN Ordering Facility: [facility] Address: [address] [place] [address] Result Comment: 40-5 9 mg/dL, Acceptable >59 mg/dL, High: Negative risk factor for coronary heart disease <40 mg/dL, Low: Positive risk factor for coronary heart disease Performed By: #### 2 4323-8, 33457-6 #### [facility] CLIA [id number] [address] [place] [address] OF [facility] Cholesterol in LDL [Mass/Vol] 134 mg/dL High <[address] [facility] Comment on above: Order Comment: Sumit farris Type: BLOOD SPECIMEN Ordering Facility: [facility] Address: [address] [place] [address] Result Comment: <100 mg/dL, Optimal 100-129 mg/dL, Near optimal/above optimal 130-159 mg/dL, Borderline high 160-189 mg/dL, High >189 mg/dL, Very high Secondary prevention optimal LDL Cholesterol levels are recommended to be <70 mg/dL LDL cholesterol is calculated using the Padgett-NIH equation. Performed By: #### 2 4323-8, 43652-8 #### [facility] CLIA [id number] [address] [place] [address] [place] Cholesterol in LDL/Cholesterol in HDL [Mass ratio] 3.19 {ratio} High <2.[address] [facility] Comment on above: Order Comment: Sumit kaleigh Type: BLOOD SPECIMEN Ordering Facility: [facility] Address: [address] [place] [address] Result Comment: Dari xie: 1. National Cholesterol Education Program ATP III Guideline At-A-Glance Quick Desk Reference: National Heart, Lung, and Blood [place]. National Institutes of Health. 2001: NIH Publication No. 01-3305. 2. An International Atherosclerosis Society position paper: global recommendations for the management of dyslipidemia: executive summary, Atherosclerosis. 2014: 232(2):410-413. Performed By: #### 2 4323-8, 93872-5 #### [facility] CLIA [id number] [address] [place] [address] [place] Cholesterol in VLDL [Mass/Vol] 14 mg/dL Normal <[address] [facility] Comment on above: Order Comment: Speci men Type: BLOOD SPECIMEN Ordering Facility: [facility] Address: [address] [place] [address] Performed By: #### 2 4323-8, 84701-1 #### [facility] CLIA [id number] [address] [place] [address] [place] Cholesterol non HDL [Mass/Vol] 149 mg/dL High <[address] [facility] Comment on above: Order Comment: Speci men Type: BLOOD SPECIMEN Ordering Facility: [facility] Address: [address] [place] [address] Result Comment: <130 mg/dL, Optimal 130-159 mg/dL, Near optimal/above optimal 160-189 mg/dL, Borderline high 190-219 mg/dL, High >219 mg/dL, Very high Secondary prevention optimal non HDL Cholesterol levels are recommended to be <100 mg/dL Performed By: #### 2 4323-8, 73619-2 #### [facility] CLIA [id number] [address] [place] [address] [place] Cholesterol.total/C holesterol in HDL [Mass ratio] 4.55 {ratio} Normal <5.[address] [facility] Comment on above: Order Comment: Speci men Type: BLOOD SPECIMEN Ordering Facility: [facility] Address: [address] [place], [place] [address] Performed By: #### 2 4323-8, 38057-7 #### [facility] CLIA [id number] [address] [place], [place] [address] [place] FASTING TIME 12 hrs Normal [facility] Comment on above: Order Comment: Speci men Type: BLOOD SPECIMEN Ordering Facility: [facility] Address: [address] [place] [address] Performed By: #### 2 4323-8, 26136-9 #### [facility] CLIA [id number] [address] [place] [address] [place] Triglyceride [Mass/Vol] 80 mg/dL Normal <[address] [facility] Comment on above: Order Comment: Speci men Type: BLOOD SPECIMEN Ordering Facility: [facility] Address: [address] [place] [address] Result Comment: <150 mg/dL, Normal 150-199 mg/dL, Borderline high 200-499 mg/dL, High >499 mg/dL, Very high Performed By: #### 2 4323-8, 94179-2 #### [facility] CLIA [id number] [address] [place] [address] OF [place] 25(OH)D3 [facility] 2024 25-hydroxyvitamin D3 [Mass/Vol] 30.4 ng/mL Low 31.0-80.[address] [facility] Comment on above: Order Comment: Sumit farris Type: BLOOD SPECIMEN Ordering Facility: [facility] Address: [address] [place] [address] Result Comment: Clas sification of 25 [place] Vitamin D status: Deficiency/Insufficiency: < or = 30 ng/ml. Sufficiency/Optimal Levels: 31-80 ng/mL Toxicity: > 100 ng/mL. Test performed by chemiluminescent immunoassay. Performed By: #### 2 4323-8, 74771-7 #### [facility] CLIA [id number] [address] [place] [address] [place] CNOVon 07-16-2024 CNOV Office Visit (PODIWS ) ANJEL MILLS ([id number]) 1970 F Date Time Provider Department 07/16/24 8:00 AM VIOLET HYMAN During your visit today, we recorded the following information about you: Merna Cheney, RN 07/16/2024 8:52 AM Signed Patient presents with: Left Foot - New, Pain Right Foot - New, Pain AMB ROOMING INTAKE FLOWSHEET DATA Pain Pain Level: 4 Pain Location: Foot-Left Description: Aching Duration Amount of Time: 4 Duration Units: Hours Frequency: Intermittent Intervention/Comfort measure: Relaxation Patient presents for bilateral foot bunions that have been ongoing for years and intermittent pain. Patient has custom orthotics that are a few years old. Xray prior to appointment. Violet Hyman 07/16/2024 8:23 AM Signed You have been diagnosed with arthritic bunions (hallux rigidus and hallux valgus) affecting both feet. Continue to use wider, comfortable shoes and your custom orthotics/inserts when possible to help ease discomfort. We will be ordering a PVR test with toe pressures and a vitamin D level blood test; please schedule and complete these tests at the designated lab location. We will follow up with you in early fall to review your test results and discuss treatment options, including potential surgical solutions if you choose to proceed. Violet Hyman 07/16/2024 8:52 AM Signed Subjective Anjel is a 54-year-old female presenting for evaluation of bilateral bunion pain. Bilateral Bunion Pain: - Pain localized to the bunion and toe area, exacerbated by walking and pushing off the toe. - Describes pain as aching when pressure is applied. 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 - Uses custom orthotics (obtained in 2018) with some relief, but not always able to wear them due to footwear limitations. - Wears UFOs for comfort. - Denies smoking or vaping. Cardiovascular: (-) cold extremities Musculoskeletal: (+) bilateral foot pain, (+) toe pain with push-off PAST MEDICAL HISTORY Diagnosis Date Abnormal glandular Papanicolaou smear of cervix 2009 Abn. Pap smear (cervix) Ocular rosacea Current Outpatient Medications Medication Sig Dispense Refill estradiol (ESTRACE) 0.01 % (0.1 mg/gram) vaginal cream Use 0.5g vaginally at bedtime for 2 weeks then 1-3 time/weeks for maintenance. 42.5 g 2 Doxycycline Monohydrate 50 mg tablet take 1 tablet once daily 90 tablet 3 tobramycin-dexamethason e (TOBRADEX) ophthalmic ointment Use 1 application in both eyes daily at bedtime. 1 Tube 5 NEOMYCIN/POLYMYXIN B SULF/HC ([id number]-[id number]-AW TOPICAL) Apply 1 Drop to affected area twice a week. No current facility-administered medications for this visit. Family History Problem Relation Age of Onset other (Other) Mother she had two sets of twins and one cantrell Stroke Father Cancer Father melenoma Hypertension Father Diabetes Sister Diabetes Brother other (pulmonary embolism) Brother twin brother Heart Maternal Grandfather Heart Paternal Grandfather Breast Cancer Maternal Aunt 80's at time of diagnosis No Ocular Disease No Family History Objective There were no vitals taken for this visit. - Cardiovascular: Dorsalis pedis pulses faint bilaterally; posterior tibial pulses palpable bilaterally; capillary refill <5 seconds. - Skin: No open sores noted bilaterally; skin well-hydrated; no corns or calluses between first and second toes. - Neurological: Protective sensation intact bilaterally. - Musculoskeletal: - Bilateral Feet: - Moderate to severe bunion deformity. - ROM: Diminished in first metatarsophalangeal joint bilaterally. - Pain with dorsiflexion and plantar flexion of first metatarsophalangeal joint; pain on palpation of plantar sesamoids bilaterally. - Strength: 5/5 for plantar flexion, dorsiflexion, inversion, and eversion. - Additional Findings: Skin temperature warm; hair growth present. 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 Hallux valgus of left foot (M20.12) 2. Hallux valgus of right foot (M20.11) - Moderate to severe bunion deformity noted on radiographs, right worse than left. - Discussed conservative management including wider shoes, orthotics, and toe spacers. - Discussed surgical options: Lapidus bunionectomy vs. metatarsophalangeal joint fusion. if lapidus bunionectomy was performed, would require midfoot procedure to address adductus. However, my concern is that she may still have pain in (more content not included)... Normal [facility] XR FOOT 3V AP/LAT/OBL BILon 07-16-2024 XR FOOT 3V AP/LAT/OBL TAVO * * *Final Report* * * DATE OF EXAM: Jul 16 2024 7:55AM [id number] - XR FOOT 3V AP/LAT/OBL TAVO / PROCEDURE REASON: multiple diagnoses * * * * Physician Interpretation * * * * TITLE: XR FOOT 3V AP/LAT/OBL TAVO CLINICAL INDICATION: Foot pain TECHNIQUE: 3 view radiographic study of the bilateral feet COMPARISON: Right foot radiograph dated 06/17/2017 FINDINGS: Right foot: Osseous demineralization. Hallux valgus deformity with mild first metatarsal phalangeal joint osteoarthritis. No acute fracture or dislocation identified. Mild to moderate joint space narrowing between the middle cuneiform and base of the second metatarsal with subchondral sclerosis. Plantar calcaneal enthesophyte. Left foot: Osseous demineralization. Pes planus deformity. Hallux valgus deformity. Mild first metatarsal phalangeal joint osteoarthritis. No acute fracture or dislocation identified. IMPRESSION: 1. Bilateral hallux valgus deformity with first metatarsal phalangeal joint osteoarthritis. 2. Right plantar calcaneal enthesophyte. 3. Left pes planus deformity. Regulatory Affairs Associate[facility] Transcribe Date/Time: Jul 21 2024 3:10P Dictated by : ROSMERY FUENTES MD This examination was interpreted and the report reviewed and electronically signed by: ROSMERY FUENTES MD on Jul 21 2024 3:15PM EST [id number] Normal 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 Anjel is a 54 year old who presents for an annual gynecologic exam without complaints. Postmenopausal: Yes since 50 HRT use: No. Last Pap: 05/09/2022 normal HPV: 05/08/2022 negative History of abnormal pap: Yes, 2009 age 38-39 years, Colposcopy Last mammogram: 2024 pending History of abnormal mammogram: Pt reported 2012 abnormal mammogram Dx scar tissue. Sexually active: Yes Vaginal dryness: Yes OB History Gravida1 Para1 Term0 Preterm1 AB0 Living1 SAB0 IAB0 Ectopic0 Multiple0 Live Births1 FAMILY HISTORY Problem Relation Age of Onset other (Other) Mother she had two sets of twins and one cantrell Stroke Father Cancer Father melenoma Hypertension Father Diabetes Sister Diabetes Brother other (pulmonary embolism) Brother twin brother Heart Maternal Grandfather Heart Paternal Grandfather Breast Cancer Maternal Aunt 80's at time of diagnosis No Ocular Disease No Family History SOCIAL HISTORY Social History Tobacco Use Smoking status: Never Passive exposure: Never Smokeless tobacco: Never Vaping Use Vaping status: Never Used Substance Use Topics Alcohol use: Yes Comment: Rarely Drug use: No REVIEW OF SYSTEMS Abdomen: No abdominal pain, nausea, vomiting, diarrhea, or constipation. No bloating, early satiety, indigestion, or increased flatulence. Bladder: No dysuria, gross hematuria, urinary frequency, urinary urgency, or incontinence Breast: No breast lumps, nipple d/c, overlying skin changes, redness or skin retraction Allergies and current medication updated:Yes SENSITIVE EXAM: The sensitive examination was discussed with the Patient or Patient's Authorized Firebrick Layer. As applicable, any other physician, advance practice provider, medical student, or other health professional student that will be observing or involved in the sensitive examination for educational or training purposes was discussed with the Patient or Authorized Firebrick Layer. The Patient or Authorized Firebrick Layer has agreed to proceed with the sensitive examination. (Sensitive examination includes inspection and/or palpation of the breasts, pelvis, prostate and anorectal regions). EXAM: BP 124/78 Ht 5' 3.504 (1.61m) Wt 140 lb 9.6 oz (63.8kg) BMI 24.51 kg/(m2). GENERAL: pleasant, female in no apparent distress HEENT: Normocephalic, atraumatic, mucus membranes moist, and no lesions DERMATOLOGY: Normal, without lesions, non-icteric, and non-hirsute BREAST: soft, non-tender, symmetric, no dominant mass, normal nipple-areolar complex, no lymphadenopathy, and no nipple discharge CHEST: Normal inspiratory effort ABDOMEN: soft, non-tender, and no masses PELVIC: external genitalia normal, normal Bartholin's glands, urethra, Hildebran's glands, no vulvar lesions, no cervical lesions, physiologic discharge present, normal appearing perineal body and perianal region BIMANUAL: uterus normal size, shape and consistency, no adnexal masses, and non-tender RECTOVAGINAL: deferred. NEURO: alert and oriented x3,exam grossly non-focal EXTREMITIES: normal ASSESSMENT/PLAN: 1) Health maintenance: Pap/HPV up to date. Mammogram ordered Mammogram up to date Nutrition, exercise and routine health maintenance exams reviewed. Calcium/Vitamin D supplementation information provided. Colon cancer screening: up to date with screening 2) Follow up one year or sooner as needed 3) vaginal dryness- Estrace cream ordered Constance Padilla APRN.STARR Referring Provider: CONSTANCE PADILLA [[id number]] Allergies As of Date: 06/12/2024 Noted Allergy Reaction PISTACHIO NUT 09/21/2008 SEASONAL ALLERGIES 10/10/2012 9 - Itching Date Reviewed: 06/12/2024 Reviewed by: Constance Padilla APRN.FRENCH PASTRY COOK - Fully Assessed Reason for Visit: Well Woman [[id number]] Primary Visit Diagnosis:Encounter for gynecological examination (general) (routine) without abnormal findings [Z01.419] Other Visit Diagnoses:Encounter for screening mammogram for breast cancer [Z12.31] Vaginal dryness [N89.8] Order(s):MAIDA SCREENING W JOSE [[id number]] Order #: [id number] FUTURE estradiol (ESTRACE) 0.01 % (0.1 mg/gram) vaginal creamUse 0.5g vaginally at bedtime for 2 weeks then 1-3 time/weeks for maintenance.Disp: 42.5 gRfl: 2 Prescriptions as of 06/12/2024 - estradiol (ESTRACE) 0.01 % (0.1 mg/gram) vaginal cream Use 0.5g vaginally at bedtime for 2 weeks then 1-3 time/weeks for maintenance. - Doxycycline Monohydrate 50 mg tablet take 1 tablet once daily - tobramycin-dexamethason e (more content not included)... Normal [facility] MAIDA SCREENING W TOMOon 06-12 MAIDA SCREENING W JOSE * * *Final Report* * * DATE OF EXAM: Jun 12 2024 8:50AM [id number] - MAIDA SCREENING W JOSE / PROCEDURE REASON: Encounter for screening mammogram for breast cancer * * * * Physician Interpretation * * * * RESULT: [address] [address] [place] [address] #[id number] - MAIDA SCREENING W JOSE HISTORY: 54 year-old patient seen for screening. Patient is asymptomatic in both breasts. Patient states no personal history of breast cancer. The patient has a family history of breast cancer. COMPARISON STUDIES: The present examination has been compared to prior imaging studies dated 04/08/2020 (mammogram), 04/25/2021 (mammogram), 05/03/2022 (mammogram) and 06/10/2023 (mammogram). MAMMOGRAM TECHNIQUE: The study was acquired using full field digital technology and interpreted from soft copy. Digital Breast Tomosynthesis (DBT) images were obtained and used to assist in the interpretation of this examination. MAMMOGRAM FINDINGS: There are scattered areas of fibroglandular density. No suspicious masses, calcifications or other abnormalities are seen in either breast. There are no significant interval changes. IMPRESSION: There is no mammographic evidence of malignancy in either breast. Routine screening mammogram is recommended. Annual mammogram will be due in 1 year. BI-RADS Category 1: Negative RISK: Based on the Tyrer-Cuzick (TC) risk assessment model, this patient has a 5.2% lifetime risk of developing breast cancer, meaning they are at average risk for developing breast cancer. However, this is only an estimate based on available history provided on the patient's questionnaire. We encourage all patients to talk with their providers about these results, further recommendations for managing breast health, and appropriate supplemental screening options if the patient has dense breast tissue. Interpreting Radiologist: Jud Monroe M.D. Electronically signed on: 06/15/2024 Regulatory Affairs Associate: SHERIE Blancribe Date/Time: Jun 12 2024 8:33A Dictated by: JUD MONROE MD This examination was interpreted and the report reviewed and electronically signed by: JUD MONROE MD on Jun 15 2024 5:42AM EST [id number] Normal [facility] SCREENINGon 05-03-2022 [facility] Clinical Summary: HMSPatient IDon 08-11-[address] [facility] Work Phone: Office Visit: [facility] visi t with practice, Rm: 1208-11-2019 NEGATED: Highlighted rowxray history of the left hand, right hand, right forearm on 08/09/2019 at [facility] Work Phone: Clinical Lists Update: Prelo ad Extendedon 08-10-2019 Tobacco smoking status MNIS Tobacco smoking status MNIS [facility] Work Phone: Clinical Summary: Outcome [place] mmaryon 08-10-2019 QuickDASH Assessment Final Score 0 [facility] Work Phone: QuickDASH Assessment item 1 1 [facility] Work Phone: QuickDASH Assessment item 10 1 [facility] Work Phone: QuickDASH Assessment item 11 1 [facility] Work Phone: QuickDASH Assessment item 2 1 [facility] Work Phone: QuickDASH Assessment item 3 1 [facility] Work Phone: QuickDASH Assessment item 4 1 [facility] Work Phone: QuickDASH Assessment item 5 1 [facility] Work Phone: QuickDASH Assessment item 6 1 [facility] Work Phone: QuickDASH Assessment item 7 1 [facility] Work Phone: QuickDASH Assessment item 8 1 [facility] Work Phone: QuickDASH Assessment item 9 1 [facility] Work Phone: diagnostic criteria for SLE #1 5 [facility] Work Phone: diagnostic criteria for SLE #10 3 [facility] Work Phone: diagnostic criteria for SLE #11 15 [facility] Work Phone: diagnostic criteria for SLE #12 20 [facility] Work Phone: diagnostic criteria for SLE #13 47.7 [facility] Work Phone: diagnostic criteria for SLE #14 67.6 [facility] Work Phone: diagnostic criteria for SLE #15 [phone] [facility] Work Phone: diagnostic criteria for SLE #2 5 [facility] Work Phone: diagnostic criteria for SLE #3 5 [facility] Work Phone: diagnostic criteria for SLE #4 5 [facility] Work Phone: diagnostic criteria for SLE #5 5 [facility] Work Phone: diagnostic criteria for SLE #6 5 [facility] Work Phone: diagnostic criteria for SLE #7 5 [facility] Work Phone: diagnostic criteria for SLE #8 5 [facility] Work Phone: diagnostic criteria for SLE #9 5 [facility] Work Phone: QuickDASH Assessment Final Score 5 [facility] Work Phone: QuickDASH Assessment item 1 1 [facility] Work Phone: QuickDASH Assessment item 10 1 [facility] Work Phone: QuickDASH Assessment item 11 1 [facility] Work Phone: QuickDASH Assessment item 2 1 [facility] Work Phone: QuickDASH Assessment item 3 1 [facility] Work Phone: QuickDASH Assessment item 4 1 [facility] Work Phone: QuickDASH Assessment item 5 1 [facility] Work Phone: QuickDASH Assessment item 6 1 [facility] Work Phone: QuickDASH Assessment item 7 1 [facility] Work Phone: QuickDASH Assessment item 8 1 [facility] Work Phone: QuickDASH Assessment item 9 3 [facility] Work Phone: diagnostic criteria for SLE #1 5 [facility] Work Phone: diagnostic criteria for SLE #10 3 [facility] Work Phone: diagnostic criteria for SLE #[address] [facility] Work Phone: diagnostic criteria for SLE #[address] [facility] Work Phone: diagnostic criteria for SLE #[address] [facility] Work Phone: diagnostic criteria for SLE #[address] [facility] Work Phone: diagnostic criteria for SLE #[phone] [facility] Work Phone: diagnostic criteria for SLE #[address] [facility] Work Phone: diagnostic criteria for SLE #[address] [facility] Work Phone: diagnostic criteria for SLE #[address] [facility] Work Phone: diagnostic criteria for SLE #[address] [facility] Work Phone: diagnostic criteria for SLE #[address] [facility] Work Phone: diagnostic criteria for SLE #[address] [facility] Work Phone: diagnostic criteria for SLE #[address] [facility] Work Phone: diagnostic criteria for SLE #[address] [facility] Work Phone: Clinical Summary: Scanned Hi story Summaryon 08-10-2019 adl form etoh alcohol performance beer [facility] Work Phone: Beta HCG ( test) Ql (U) Never [facility] Work Phone: comments about allergies Allergic to pistachios [facility] Work Phone: consumes three or more drinks of alcohol (beer, wine, liquor) daily or almost daily less than 1 drink per day [facility] Work Phone: Data entered by patient exercise frequency 6 days per week [facility] Work Phone: Data entered by patient exercise type walking, jogging, swimming, strength training, aerobics [facility] Work Phone: Data entered by patient, additional medical problems I have occular rosacea [facility] Work Phone: data entered by patient, alcohol (ethanol or ETOH) use Yes [facility] Work Phone: Data entered by patient, allergy list I don't have any Drug AllergiesPlant pollens (Hay Fever) [facility] Work Phone: data entered by patient, drug (of abuse) use No [facility] Work Phone: data entered by patient, Employer Name employed [facility] Work Phone: data entered by patient, exercise history Yes [facility] Work Phone: data entered by patient, father's medical history Melanoma [facility] Work Phone: Data entered by patient, medication list Loyda control-,35 mg-,35 mg once a day-Once a daytobradex-Unknown Strength-Small amount-Once a weekDoxycycline monohydrate-50 mg-One-Once a day [facility] Work Phone: data entered by patient, mother's medical history Arthritis [facility] Work Phone: data entered by patient, social history, current smoker never smoker [facility] Work Phone: data entered by patient, social history, marital status [facility] Work Phone: father of patient is alive or [facility] Work Phone: Housing Type: apartment, house, mcc, trailer, none house [facility] Work Phone: housing unit size (asthma environmental history, housing) (from single family to don't know) 1 floor [facility] Work Phone: medical history of patient's brother(s) Diabetes - non-insulin dependent [facility] Work Phone: medical history of patient's sister COPDDiabetes - insulin dependent [facility] Work Phone: mother of patient is alive or Alive [facility] Work Phone: Number of dependent children Yes [facility] Work Phone: Web entered surgical history comments I had my son c section and I've had eyelid surgery at the [facility]. My eyelashes grew in toward my eye. [facility] Work Phone: Vital Signs Date Time Vital Sign Value Performing Clinician Facility 09-18-2024 07:36-0400 Body temperature 97.9 [degF] Dr. Delilah Devries MD Work Phone: [facility] 09-18-2024 07:36-0400 Diastolic blood pressure 60 mm[Hg] Dr. Delilah Devries MD Work Phone: [facility] 09-18-2024 07:36-0400 Heart rate 57 /min Dr. Delilah Devries MD Work Phone: [facility] 09-18-2024 07:36-0400 Respiratory rate 15 /min Dr. Delilah Devries MD Work Phone: [facility] 09-18-2024 07:36-0400 SaO2% (BldA) [Mass fraction] 98 % Dr. Delilah Devries MD Work Phone: [facility] 09-18-2024 07:36-0400 Systolic blood pressure 126 mm[Hg] Dr. Delilah Devries MD Work Phone: [facility] 09-07-2024 08:45-0400 Diastolic blood pressure 93 mm[Hg] Delilah Devries MD Work Phone: [facility] Comment on above: recheck 09-07-2024 08:45-0400 Systolic blood pressure 155 mm[Hg] Delilah Devries MD Work Phone: [facility] Comment on above: recheck 09-07-2024 07:59-0400 Body mass index (BMI) [Ratio] 24.55 kg/m2 Delilah Devries MD Work Phone: [facility] 09-07-2024 07:59-0400 Body weight 63.87 kg Delilah Devries MD Work Phone: [facility] 09-07-2024 07:59-0400 Heart rate 60 /min Delilah Devries MD Work Phone: [facility] 09-07-2024 07:59-0400 SaO2% (BldA) [Mass fraction] 100 % Delilah Devries MD Work Phone: [facility] 08-24-2024 07:27-0400 Diastolic blood pressure 78 mm[Hg] Yudi Older TOBACCO FARMWORKER.FRENCH PASTRY COOK Work Phone: [facility] Comment on above: BP Artur 08-24-2024 07:27-0400 Systolic blood pressure 136 mm[Hg] Yudi Older TOBACCO FARMWORKER.FRENCH PASTRY COOK Work Phone: [facility] Comment on above: BP Artur 08-24-2024 07:19-0400 Body mass index (BMI) [Ratio] 24.23 kg/m2 Yudi Older TOBACCO FARMWORKER.FRENCH PASTRY COOK Work Phone: [facility] 08-24-2024 07:19-0400 Body weight 63.05 kg Yudi Older TOBACCO FARMWORKER.FRENCH PASTRY COOK Work Phone: [facility] 08-24-2024 07:19-0400 Heart rate 65 /min Yudi Older TOBACCO FARMWORKER.FRENCH PASTRY COOK Work Phone: [facility] 08-24-2024 07:19-0400 Respiratory rate 16 /min Yudi Older TOBACCO FARMWORKER.FRENCH PASTRY COOK Work Phone: [facility] 08-24-2024 07:19-0400 SaO2% (BldA) [Mass fraction] 98 % Yudi Older TOBACCO FARMWORKER.FRENCH PASTRY COOK Work Phone: [facility] 06-12-2024 09:06-0400 Body height 161.3 cm Constance Dax TOBACCO FARMWORKER.FRENCH PASTRY COOK Work Phone: [facility] 06-12-2024 09:06-0400 Body mass index (BMI) [Ratio] 24.51 kg/m2 Constance Lueders TOBACCO FARMWORKER.FRENCH PASTRY COOK Work Phone: [facility] 06-12-2024 09:06-0400 Body weight 63.78 kg Constance Dax TOBACCO FARMWORKER.FRENCH PASTRY COOK Work Phone: [facility] 06-12-2024 09:06-0400 Diastolic blood pressure 78 mm[Hg] Constance Dax TOBACCO FARMWORKER.FRENCH PASTRY COOK Work Phone: [facility] 06-12-2024 09:06-0400 Systolic blood pressure 124 mm[Hg] Constance Dax TOBACCO FARMWORKER.FRENCH PASTRY COOK Work Phone: [facility] 06-10-2023 10:07-0400 Body height 161.3 cm Constance Lueders TOBACCO FARMWORKER.FRENCH PASTRY COOK Work Phone: [facility] 06-10-2023 10:07-0400 Body weight 62.14 kg Constance Lueders TOBACCO FARMWORKER.FRENCH PASTRY COOK Work Phone: [facility] 06-10-2023 10:07-0400 Diastolic blood pressure 60 mm[Hg] Constance Lueders TOBACCO FARMWORKER.FRENCH PASTRY COOK Work Phone: [facility] 06-10-2023 10:07-0400 Systolic blood pressure 118 mm[Hg] Constance Dax TOBACCO FARMWORKER.FRENCH PASTRY COOK Work Phone: [facility] 05-03-2022 15:06-0500 Body height 162.6 cm Hernan Bone MD Work Phone: [facility] 05-03-2022 15:06-0500 Body weight 64.5 kg Hernan Bone MD Work Phone: [facility] 05-03-2022 15:06-0500 Diastolic blood pressure 76 mm[Hg] Hernan Bone MD Work Phone: [facility] 05-03-2022 15:06-0500 Systolic blood pressure 124 mm[Hg] Hernan Bone MD Work Phone: [facility] NEGATED: Highlighted [id number] 08:06-0400 BMI (Body Mass Index) 22.05 kg/m2 Ligia Vivasch TRACTOR OPERATOR HELPER [facility] Work Phone: NEGATED: Highlighted [id number] 08:06-0400 Body weight 59.88 kg Ligia Stephenson TRACTOR OPERATOR HELPER [facility] Work Phone: NEGATED: Highlighted [id number] 08:06-0400 Body weight 60 kg Ligia Stephenson TRACTOR OPERATOR HELPER [facility] Work Phone: NEGATED: Highlighted [id number] 08:06-0400 BP Diastolic 90 mm[Hg] Ligia Vivasch TRACTOR OPERATOR HELPER [facility] Work Phone: NEGATED: Highlighted [id number] 08:06-0400 BP Diastolic 100 mm[Hg] Ligia Vivasch TRACTOR OPERATOR HELPER [facility] Work Phone: NEGATED: Highlighted [id number] 08:06-0400 BP Systolic 173 mm[Hg] Ligia Diesch TRACTOR OPERATOR HELPER [facility] Work Phone: NEGATED: Highlighted [id number] 08:06-0400 BP Systolic 176 mm[Hg] Ligia Diesch TRACTOR OPERATOR HELPER [facility] Work Phone: NEGATED: Highlighted [id number] 08:06-0400 Height 165.1 cm Ligia Stephenson LPN [facility] Work Phone: NEGATED: Highlighted [id number] 08:06-0400 Height 165 cm Ligia Stephenson TRACTOR OPERATOR HELPER [facility] Work Phone: Encounters Encounter Date Encounter Type Care Provider Facility Start: 09-18-2024 End: 09-18-[address] Delilah Devries MD Work Phone: -[facility] Start: 09-18-2024 End: 09-18-2024 Patient encounter procedure Alejandro Dominik [facility] Work Phone: Start: 09-07-2024 End: 09-07-2024 Office outpatient visit 15 minutes Delilah Devries MD Work Phone: Internal Medicine [place] Comment on above: Elevated BP without diagnosis of hypertension (Primary Dx); Elevated liver enzymes Start: 09-07-2024 End: 09-07-2024 [facility] Facility:[facility] Start: 08-28-2024 End: 08-28-2024 [facility] Facility:[facility] Start: 08-24-2024 End: 08-24-2024 Patient encounter procedure Yudi Franco APRN.FRENCH PASTRY COOK Work Phone: [facility] Work Phone: Start: 08-24-2024 End: 08-24-2024 Periodic preventive med est patient 40-64yrs Yudi Franco APRN.FRENCH PASTRY COOK Work Phone: Internal Medicine [place] Comment on above: Annual physical exam (Primary Dx); Elevated blood pressure reading; Asymptomatic varicose veins of right lower extremity; Ocular rosacea; Family history of malignant neoplasm of skin; Bunion; Encounter for immunization; Screening for depression; Encounter for screening examination for other mental health and behavioral disorders Start: 08-24-2024 End: 08-24-2024 [facility] Facility:[facility] Start: 08-09-2024 End: 08-14-2024 ambulatory Yudi Franco APRN.FRENCH PASTRY COOK Work Phone: Internal Medicine [place] Comment on above: Vitamin D Start: 08-09-2024 End: 08-14-2024 Patient encounter procedure Yudi Franco APRN.CNP Work Phone: [facility] Start: 07-23-2024 End: 07-23-2024 Refill Gabe Arceo MD Work Phone: Ophthalmology Comment on above: Refill Request Start: 07-17-2024 End: 07-22-2024 Follow-up encounter Violet Hailey Work Phone: Podiatry Start: 07-16-2024 End: 07-16-2024 Patient encounter procedure Violet Hailey Work Phone: Podiatry Comment on above: Hallux valgus of lef t foot (Primary Dx); Hallux rigidus of left foot; Hallux valgus of right foot; Hallux rigidus of right foot; Diminished pulses in lower extremity Start: 07-16-2024 End: 07-16-2024 ambulatory [facility] Facility:[facility] Start: 07-16-2024 End: 07-16-2024 Subsequent hospital visit by physician Crispin [facility] [place] Work Phone: Radiology Comment on above: Bilateral foot pain [M79.671, M79.672] Start: 07-14-2024 End: 07-14-2024 Orders Only Violet Hyman Work Phone: Podiatry Comment on above: Bilateral foot pain (Primary Dx) Start: 06-15-2024 End: 08-15-2024 Follow-up encounter Constance Padilla APRN.CNP Work Phone: OB/Gynecology Start: 06-12-2024 End: 06-12-2024 Patient encounter procedure Constance Padilla APRN.CNP Work Phone: OB/Gynecology Comment on above: Encounter for gyneco logical examination (general) (routine) without abnormal findings (Primary Dx); Encounter for screening mammogram for breast cancer; Vaginal dryness Start: 06-12-2024 End: 06-12-2024 Patient encounter status Constance Padilla APRN.CNP Work Phone: [facility] Start: 06-12-2024 End: 06-12-2024 ambulatory [facility] PADILLA Facility:[facility] Start: 06-12-2024 End: 06-12-2024 Subsequent hospital visit by physician Screen Mammo [facility] Mammogram Start: 08-04-2023 Refill Gabe walker MD Work Phone: Ophthalmology Comment on above: Refill Request Start: 06-11-2023 Documentation procedure Mammog adwoa Coordinator [facility] Start: 06-11-2023 Letter encounter Mammography Coordinator [facility] Department Start: 06-10-2023 End: 06-10-2023 Patient encounter procedure Constance Padilla APRN.STARR Work Phone: OB/Gynecology Comment on above: Encounter for gyneco logical examination (general) (routine) without abnormal findings (Primary Dx); Encounter for screening mammogram for breast cancer Start: 06-10-2023 End: 06-10-2023 Patient encounter status Constance Padilla APRN.FRENCH PASTRY COOK Work Phone: [facility] Start: 06-10-2023 End: 06-10-2023 Subsequent hospital visit by physician Screen Mammo [facility] Mammogram Comment on above: Encounter for screen ing mammogram for malignant neoplasm of breast [Z12.31] Start: 06-04-2023 Telephone encounter Constance carpenter APRN.FRENCH PASTRY COOK Work Phone: Mammogram Comment on above: Orders Start: 02-11-2023 ambulatory Hernan Granger Work Phone: OB/Gynecology Comment on above: Mammogram Start: 08-16-2022 Refill Gabe walker MD Work Phone: Ophthalmology Comment on above: Refill Request Start: 05-03-2022 End: 05-03-2022 Patient encounter procedure Hernan Bone MD Work Phone: OB/Gynecology Comment on above: Encounter for gyneco logical examination without abnormal finding (Primary Dx); Encounter for screening for malignant neoplasm of cervix; Special screening examination for human papillomavirus (HPV); Encounter for screening mammogram for malignant neoplasm of breast Start: 05-03-2022 End: 05-03-2022 Patient encounter status Hernan Bone MD Work Phone: OB/Gynecology Start: 05-03-2022 End: 05-03-2022 Subsequent hospital visit by physician Screen Mammo [facility] Mammogram Comment on above: Encounter for screen ing mammogram for breast cancer [Z12.31] Start: 03-28-2022 ambulatory Ava Granger Work Phone: [place] [facility] [place] Start: 03-28-2022 Patient encounter procedure Ava Gutiérrez MD Work Phone: OB/Gynecology Comment on above: Annual checkup+ mamm ogram Start: 08-28-2021 Refill Gabe walker MD Work Phone: Ophthalmology Comment on above: Refill Request Start: 08-11-2019 End: 08-11-2019 Patient encounter procedure Iván Vazquez MD Work Phone: [facility] Work Phone: Procedures Date Procedure Procedure Detail Performing Clinician Start: 08-24-2024 Adult depression screening assessment Yudi Franco APRN.CNP Work Phone: Start: 08-24-2024 Lipid 1996 panel - S calli or Plasma Delilah Devries MD Work Phone: Start: 09-26-2022 Lipid 1996 panel - S calli or Plasma Screen Wstr Start: 05-03-2022 End: 05-03-2022 Mammography Ava Gutiérrez MD Work Phone: Start: 04-25-2021 Mammography Gabe quinones MD Work Phone: Start: 07-11-2020 Colonoscopy Gabe quinones MD Work Phone: Start: 08-11-2019 End: 08-11-2019 Blood pressure outside of normal parameters - follow-up documented Iván Vazquez MD Work Phone: Start: 08-11-2019 End: 08-11-2019 BMI documented within normal parameters - no follow-up plan is required Iván Vazquez MD Work Phone: Start: 08-11-2019 End: 08-11-2019 Documentation of current medications Iván Vazquez MD Work Phone: Start: 08-11-2019 End: 08-11-2019 Pain assessment documented as positive - follow-up documented Iván Vazquez MD Work Phone: Start: 08-11-2019 End: 08-11-2019 Tobacco non-user Iván Vazquez MD Work Phone: Start: 12-30-2017 Adult depression screening assessment Gabe Arceo MD Work Phone: NEGATED: Highlighted rowStart: 08-11-2019 End: 08-11-2019 Documentation of current medications Ligia Stephenson LPN Plan of Treatment Date Care Activity Detail Author Start: 07-11-2030 Colonoscopy COLONOSCOPY [facility] Start: 07-11-2030 COLORECTAL CANCER SCREENING COLORECTAL CANCER SCREENING [facility] Start: 07-11-2030 Screening for malign ant neoplasm of colon [facility] Start: 08-24-2029 Lipid panel Lipid Screening [facility] Start: 08-08-2029 Urine microalbumin profile DTaP,Tdap,Td Vaccine (3 - Td or Tdap) [facility] Start: 12-31-2027 Urine microalbumin profile DTAP,TDAP,TD (2 - Td or Tdap) [facility] Start: 09-27-2027 Lipid 1996 panel - Serum or Plasma Lipid Screening [facility] Start: 09-27-2027 Lipid panel Lipid Screening [facility] Start: 08-25-2027 Diabetes Screening Diabetes Screenin g [facility] Start: 05-03-2027 HPV TESTING HPV TESTING [facility] Start: 05-03-2027 PAP TESTING PAP TESTING [facility] Start: 05-03-2027 Screening for malign ant neoplasm of cervix [facility] Start: 09-26-2025 Diabetes Screening Diabetes Screenin g [facility] Start: 08-24-2025 Anxiety Screening Anxiety Screening [facility] Start: 08-24-2025 Depression Screening Depression Scre ening [facility] Start: 06-15-2025 End: 06-15-2025 Patient encounter procedure Mammogram Comment on above: Encounter for screen ing mammogram for breast cancer [Z12.31] annual Start: 06-12-2025 Screening for malign ant neoplasm of breast Mammogram Screening [facility] Start: 12-11-2024 End: 12-11-2024 Patient encounter procedure 12/11/2024 8:40 AM EDT Office Visit Internal Medicine [place] [address] [place] [address] Delilah Devries MD [address] [place] [address] 3 month follow up [facility] [place] Comment on above: 3 month follow up Start: 12-08-2024 End: 03-09-2025 Comprehensive metabolic 2000 panel - Serum or Plasma COMPREHENSIVE METABOLIC PANEL Lab Routine Elevated liver enzymes Expected: 12/08/2024, Expires: 03/09/2025 [facility] Work Phone: Comment on above: Expected: 12/08/2024 , Expires: 03/09/2025 Start: 12-08-2024 End: 12-08-2024 ambulatory 12/08/2024 7:00 AM EDT Results Only [facility] Draw Station [address] [place] [address] [facility] Start: 10-14-2024 End: 01-13-2025 25-hydroxyvitamin D3 [Mass/volume] in Serum or Plasma VITAMIN D 25 HYDROXY Lab Routine Vitamin D deficiency Expected: 10/14/2024 (Approximate), Expires: 01/13/2025 [facility] Work Phone: Comment on above: Expected: 10/14/2024 (Approximate), Expires: 01/13/2025 Start: 10-14-2024 End: 10-14-2024 ambulatory 10/14/2024 7:00 AM EDT Results Only [facility] [address] [place] [address] [facility] Start: 09-17-2024 LIPID SCREEN LIPID SCREEN [facility] Start: 09-07-2024 End: 09-07-2024 Patient encounter procedure 09/07/2024 8:00 AM EDT Office Visit Internal Medicine [place] [address] [place] [address] Delilah Devries MD [address] [place] [address] BP follow up [facility] [place] Comment on above: BP follow up Start: 08-28-2024 End: 08-28-2024 Patient encounter procedure 08/28/2024 11:00 AM EDT Office Visit Vasculary Surgery [address] [place] [place] [address] Hallux valgus of left foot [M20.12] Vasculary Surgery Comment on above: Hallux valgus of lef t foot [M20.12] Start: 08-24-2024 End: 08-24-2024 Patient encounter procedure 08/24/2024 7:20 AM EDT Office Visit Internal Medicine [place] [address] [place] [address] Yudi Franco APRN.FRENCH PASTRY COOK [address] [place] [address] Physical Internal Medicine [place] Comment on above: Physical Start: 08-14-2024 End: 11-13-2024 CBC panel - Blood by Automated count COMPLETE BLOOD COUNT Lab Routine Annual physical exam Expected: 08/14/2024, Expires: 11/13/2024 [facility] Comment on above: Expected: 08/14/2024 , Expires: 11/13/2024 Start: 08-14-2024 End: 11-13-2024 Comprehensive metabolic 2000 panel - Serum or Plasma COMPREHENSIVE METABOLIC PANEL Lab Routine Annual physical exam Expected: 08/14/2024, Expires: 11/13/2024 [facility] Comment on above: Expected: 08/14/2024 , Expires: 11/13/2024 Start: 08-14-2024 End: 11-13-2024 Lipid 1996 panel - Serum or Plasma LIPID PANEL, FASTING Lab Routine Annual physical exam Expected: 08/14/2024, Expires: 11/13/2024 [facility] Comment on above: Expected: 08/14/2024 , Expires: 11/13/2024 Start: 07-16-2024 End: 10-15-2024 25-hydroxyvitamin D3 [Mass/volume] in Serum or Plasma [facility] Comment on above: Expected: 07/16/2024 , Expires: 10/15/2024 Start: 07-16-2024 End: 07-16-2024 Patient encounter procedure 07/16/2024 8:00 AM EDT Office Visit Podiatry [address] [place] [id number] Violet Hyman [address] [place] [address] [facility] Comment on above: [facility] Start: 06-12-2024 End: 06-12-2024 Patient encounter procedure Mammogram Comment on above: Encounter for screen ing mammogram for breast cancer [Z12.31] Annual w/ mammo Start: 06-09-2024 Screening for malign ant neoplasm of breast Mammogram Screening [facility] Start: 05-03-2023 Mammography [facility] Start: 05-03-2023 Screening for malign ant neoplasm of breast Mammogram Screening [facility] Start: 03-11-2023 Behavioral Health Screening Behavioral Health Screening [facility] Start: 03-11-2023 Depression Assessment Depression Ass essment [facility] Start: 02-11-2023 HPV TESTING HPV TESTING [facility] Start: 02-11-2023 PAP TESTING PAP TESTING [facility] Start: 11-09-2022 Covid-19 Vaccine () Covid-19 Vaccine () [facility] Start: 11-09-2022 Influenza vaccination Influenza Vacc ine (#1) [facility] Start: 09-17-2022 DIABETES SCREEN DIABETES SCREEN [facility] Start: 04-25-2022 Mammography MAMMOGRAM [facility] Start: 03-11-2022 DEPRESSION ASSESSMENT DEPRESSION ASS ESSMENT [facility] Start: 11-09-2021 Influenza vaccination INFLUENZA (#1) [facility] Start: 05-27-2021 COVID-19 VACCINE (4 - Booster for Moderna series) COVID-19 VACCINE (4 - Booster for Moderna series) [facility] Start: 03-24-2021 COVID-19 VACCINE (4 - Booster for Moderna series) COVID-19 VACCINE (4 - Booster for Moderna series) [facility] Start: 2020 Pneumococcal Vaccine : 50+ (1 of 1 - PCV) Pneumococcal Vaccine: 50+ (1 of 1 - PCV) [facility] Start: 2020 SHINGRIX VACCINE (1 of 2) SHINGRIX VACCINE (1 of 2) [facility] Start: 08-11-2019 End: 08-11-2019 Appointment Appointment [facility] Work Phone: Start: 12-30-2018 Adult depression screening assessment DEPRESSION SCREENING [facility] Start: 2015 COLOGUARD (FIT-DNA) COLOGUARD (FIT-D NA) [facility] Start: [address] COLONOGRAPHY [facility] Start: 2015 FECAL OCCULT BLOOD FECAL OCCULT BLOO D [facility] Start: 2015 Screening for malign ant neoplasm of colon [facility] Start: 2015 SIGMOIDOSCOPY SIGMOIDOSCOPY [facility] Start: 1988 Anxiety Screening Anxiety Screening [facility] Start: 1988 Depression Screening Depression Scre ening [facility] Start: 1988 HEPATITIS C SCREENING HEPATITIS C SC LANENING [facility] Start: 1970 HEPATITIS B (1 of 3 - 3-dose series) HEPATITIS B (1 of 3 - 3-dose series) [facility] End: 07-12-2025 DBT Breast - bilateral screening MAIDA SCREENING W JOSE Radiology Routine Encounter for gynecological examination (general) (routine) without abnormal findings Encounter for screening mammogram for breast cancer 1 Occurrences starting 06/12/2024 until 07/12/2025 [facility] Work Phone: Comment on above: 1 Occurrences starti ng 06/12/2024 until 07/12/2025 End: 06-12-2024 DBT Breast - bilateral screening [facility] Work Phone: Comment on above: ONCE for 1 Occurrenc es starting 06/12/2024 until 06/12/2024 End: 06-02-2023 MAIDA SCREENING MAIDA SCREENING Radiology Routine Encounter for screening mammogram for malignant neoplasm of breast 1 Occurrences starting 05/03/2022 until 06/02/2023 [facility] Work Phone: Comment on above: 1 Occurrences starti ng 05/03/2022 until 06/02/2023 End: 07-03-2024 MG Breast Screening MAIDA SCREENING Radiology Routine Encounter for screening mammogram for malignant neoplasm of breast 1 Occurrences starting 06/04/2023 until 07/03/2024 [facility] Work Phone: Comment on above: 1 Occurrences starti ng 06/04/2023 until 07/03/2024 End: 07-09-2024 MG Breast Screening MAIDA SCREENING Radiology Routine Encounter for screening mammogram for breast cancer 1 Occurrences starting 06/10/2023 until 07/09/2024 [facility] Work Phone: Comment on above: 1 Occurrences starti ng 06/10/2023 until 07/09/2024 MG Breast Screening MAIDA SCREENIN G Radiology Routine Encounter for screening mammogram for malignant neoplasm of breast 06/10/2023 10:03 AM EDT [facility] Work Phone: PAP FLUID CERVICAL SCREENING PAP FLUID CERVICAL SCREENING Lab Routine Encounter for screening for malignant neoplasm of cervix Special screening examination for human papillomavirus (HPV) 05/03/2022 3:37 PM EST [facility] Work Phone: Patient Education \cps-sql1\CPS_ PtEducatio n\CDC_FALL_PREVENTION.pd f [facility] Work Phone: End: 07-16-2025 US.doppler Extremity arteries - bilateral for physiologic artery study PVR ANK PRESS [facility] Vascular Lab Routine Hallux valgus of left foot Hallux rigidus of left foot Hallux valgus of right foot Hallux rigidus of right foot Diminished pulses in lower extremity 1 Occurrences starting 07/16/2024 until 07/16/2025 [facility] Work Phone: Comment on above: 1 Occurrences starti ng 07/16/2024 until 07/16/2025 End: 08-13-2025 XR Foot - bilateral AP and Lateral and oblique XR FOOT GENERAL 3V AP/LAT/OBL BILATERAL Radiology Routine Bilateral foot pain 1 Occurrences starting 07/14/2024 until 08/13/2025 [facility] Work Phone: Comment on above: 1 Occurrences starti ng 07/14/2024 until 08/13/2025 XR Foot - bilateral AP and Lateral and oblique XR FOOT GENERAL 3V AP/LAT/OBL BILATERAL Radiology Routine Bilateral foot pain 07/16/2024 7:55 AM EDT [facility] Work Phone: [facility] Immunizations Immunization Date Immunization Notes Care Provider Fa fly 08-24-2024 pneumococcal conjuga te (PCV20) vaccine, 20 valent (PREVNAR 20) Yudi Older TOBACCO FARMWORKER.FRENCH PASTRY COOK Work Phone: [facility] 08-24-2024 pneumococcal Conjuga te, unspecified formulation Yudi Older TOBACCO FARMWORKER.FRENCH PASTRY COOK Work Phone: [facility] Work Phone: 12-26-2023 influenza, seasonal, injectable, preservative free Constance Lueders TOBACCO FARMWORKER.FRENCH PASTRY COOK Work Phone: [facility] 12-12-2022 influenza, injectabl e, quadrivalent, preservative free Constance Lueders TOBACCO FARMWORKER.FRENCH PASTRY COOK Work Phone: [facility] 01-02-2022 influenza, injectabl e, quadrivalent, preservative free Constance Lueders TOBACCO FARMWORKER.FRENCH PASTRY COOK Work Phone: [facility] 01-02-2022 influenza virus vaccine, unspecified formulation Screen Wstr [facility] 12-20-2021 zoster vaccine recombinant Ava Gutiérrez MD Work Phone: [facility] 10-19-2021 zoster vaccine recombinant Ava Gutiérrez MD Work Phone: [facility] 01-12-2021 influenza, injectabl e, quadrivalent, preservative free Constance Dax TOBACCO FARMWORKER.FRENCH PASTRY COOK Work Phone: [facility] 01-15-2020 influenza, injectabl e, quadrivalent, preservative free Ocnstance Dax TOBACCO FARMWORKER.FRENCH PASTRY COOK Work Phone: [facility] 12-18-2019 influenza, injectabl e, quadrivalent, preservative free Constance Padilla TOBACCO FARMWORKER.FRENCH PASTRY COOK Work Phone: [facility] 08-09-2019 tetanus toxoid, redu alvaro diphtheria toxoid, and acellular pertussis vaccine, adsorbed [facility] Work Phone: 01-10-2019 influenza, injectabl e, quadrivalent, preservative free Gabe Arceo MD Work Phone: [facility] Work Phone: 12-30-2017 influenza, injectabl e, quadrivalent, contains preservative Gabe Arceo MD Work Phone: [facility] Work Phone: 01-02-2017 influenza, injectabl e, quadrivalent, contains preservative Gabe Arceo MD Work Phone: [facility] Work Phone: 12-09-2014 influenza, injectabl e, quadrivalent, contains preservative Gabe Arceo MD Work Phone: [facility] 12-23-2013 influenza, seasonal, injectable Gabe Arceo MD Work Phone: [facility] Work Phone: 12-09-2010 influenza virus vaccine, unspecified formulation Gabe Arceo MD Work Phone: [facility] Payers Date Payer Category Payer Private Health Insurance MMO SUP ERMED O [id number] 2018 Unknown MMO MMO [employer] [id number] 2018-Present [phone] [address] [place] [address] PPO [id number] 2018 Unknown [id number] 2018 Unknown [id number] Self-pay SELF PAY INSURANCE [id number] Social History Date Type Detail Facility Start: 08-11-2019 End: 08-11-2019 Assertion Unknown if ever smoked [facility] Work Phone: Start: 1970 Sex Assigned At Female [facility] Work Phone: Start: 10-02-2010 End: 08-09-2019 Tobacco smoking status NHIS Never smoked tobacco [facility] Start: 05-03-2021 End: 09-07-2024 Alcohol intake Current drinker of alcohol (finding) [facility] Start: 11-17-2013 History SDOH Alcohol Comment Rarey [facility] Start: 1970 Sex Assigned At Not on file C [facility] Start: 10-02-2010 End: 06-10-2023 Tobacco use and exposure Smokeless tobacco non-user [facility] Work Phone: Start: 05-03-2022 Alcohol Comment [facility] Start: 02-17-2020 End: 05-03-2022 History of Social function [facility] Start: 02-17-2020 End: 05-03-2022 Tobacco use panel [facility] Adult Depression Screening Assessment 0 [facility] Start: 06-10-2023 Education 18 [facility] Has the [employer], [employer], [employer], or water company threatened to shut off services in your home in past 12Mo No [facility] Do you belong to any clubs or organizations such as baptism groups, unions, [employer]trippers or athletic groups, or school groups? Yes [facility] Are you now , , , , never or living with a partner? [facility] How often to you hav e a drink containing alcohol? 2-4 times a month [facility] How many standard drinks containing alcohol do you have on a typical day? 1 or 2 [facility] How often do you hav e 6 or more drinks on 1 occasion? Never [facility] Do you feel stress - tense, restless, nervous, or anxious, or unable to sleep at night because your mind is troubled all the time - these days [OSQ] Not at all [facility] (I/We) worried [place] (my/our) food would run out before (I/we) got money to buy more. Never true [facility] Start: 08-22-2024 Gender identity Identifies as female gender (finding) [facility] Start: 08-22-2024 Sexual orientation Heterosexua l (finding) [facility] NEGATED: Highlighted rowStart: RENNY History of tobacco use Passive smoker [facility] Functional Status Date Assessment Result Facility 01-29-2014 Are you deaf, or do you have serious difficulty hearing No 01/29/2014 2:38 PM Abbey Nolasco LPN No [facility] 01-29-2014 Are you blind, or do you have serious difficulty seeing, even when wearing glasses No 01/29/2014 2:38 PM Abbey Nolasco LPN No [facility] 01-29-2014 Do you have difficul ty dressing or bathing No 01/29/2014 2:38 PM Abbey Nolasco LPN No [facility] 01-29-2014 Because of a physica l, mental, or emotional condition, do you have difficulty doing errands alone such as visiting a physician's office or shopping No 01/29/2014 2:38 PM Abbey Nolasco LPN No [facility] 11-17-2013 Do you have serious difficulty walking or climbing stairs No 11/17/2013 4:26 PM Addie Muro Ma No [facility] Work Phone: Mental Status Date Assessment Result Facility 01-29-2014 Because of a physica l, mental, or emotional condition, do you have serious difficulty concentrating, remembering, or making decisions No 01/29/2014 2:38 PM Abbey Nolasco LPN No [facility] Clinical Notes 04-08-2012 to 09-07-2024 Patient InstructionsDelilah Devries MD - 09/07/2024 8:19 AM EDTPatient Yudi Bajwa APRN.STARR - 08/24/2024 7:32 AM EDTTelephone Encounter - Paul Sousa - 07/23/2024 8:35 AM EDT Note Date & Type Note Facility 09-07-2024 Instructions Delilah Devries MD - 09/07/2024 8:39 AM EDT We discussed your elevated blood pressure and hypertension: - Your blood pressure readings at home are generally in the 130s, with occasional higher readings. Today, your blood pressure was 143/80. Based on your readings and family history, you are on the cusp of hypertension. - Please continue monitoring your blood pressure daily at home using your cuff. Take three readings each morning, and keep a record to bring to your next visit. - Reduce your salt intake, including hidden sources such as canned soups, chips, salted nuts, pickles, and sauerkraut. Aim to limit these foods to once a week or less. - Maintain your current level of physical activity, but try to incorporate 30 minutes of moderate-intensity exercise (e.g., brisk walking, treadmill, or similar activities) at least 5 days a week to help lower your blood pressure and improve cardiovascular health. Getting your heart rate up during these sessions is beneficial. - If your blood pressure remains elevated, we may consider starting you on Norvasc (2.5 mg) at your next visit. We discussed your cholesterol and liver enzymes: - Your cholesterol and liver enzyme levels were elevated on recent blood work. This may have been influenced by increased alcohol intake during your recent trip. - Limit alcohol consumption to 1-2 drinks per week to help improve these levels. - We will recheck your blood work in 3 months to monitor your cholesterol and liver enzymes. We discussed your overall health and activity: - Your current activity level, including gardening and daily steps, is excellent. However, structured exercise sessions that elevate your heart rate for at least 25-30 minutes can provide additional health benefits. - Continue your current multivitamin and vitamin D supplements as previously prescribed. Follow-Up: - Please schedule a follow-up appointment in 3 months to recheck your blood pressure, cholesterol, and liver enzymes. - Bring your blood pressure log to your next visit for review. Let me know if you have any new symptoms or concerns before your next visit. documented in this encounter [facility] 09-07-2024 Note HNO ID: [id number] Author: DELILAH DEVRIES MD Service: ? Author Type: Physician Type: Progress Notes Filed: 09/07/2024 13:21 Note Text: Reason for Visit Follow up HPI Anjel Mills is a 54-year-old female presenting for follow-up on elevated blood pressure readings. Anjel was seen a few weeks ago and had a blood pressure reading in the 140s. She was advised to monitor her blood pressure daily in the morning, which she has been doing using her home blood pressure cuff. She reports that her readings at home have been in the 130s, sometimes lower, with the highest reading being 147/95. She takes her blood pressure three times each morning after sitting quietly. However, she notes that her blood pressure was higher when taken with her home cuff today, reading 160/?. She has a family history of hypertension. She reports eating a healthy diet and being very active, engaging in gardening and farm work. She consumes homemade sauerkraut and pickles regularly. She is postmenopausal and has experienced hot flashes. She drinks 1-2 beers per week but recently consumed 2-3 beers per day during a week-long vacation in [place]. She denies heavy salt use but does use seasonings like [place]'s and pepper. Anjel has a history of eye issues for which she was taking doxycycline monohydrate since 2016 but stopped about a month ago. She currently takes a multivitamin and vitamin D supplement. She recently had blood work done, which showed elevated cholesterol and liver enzymes. She also had an ASAD test done by Dr. Hyman a couple of weeks ago. Social History Tobacco Use Smoking status: Never Passive exposure: Never Smokeless tobacco: Never Vaping Use Vaping status: Never Used Substance Use Topics Alcohol use: Yes Comment: Rarely Drug use: No Past medical history, appointments, medications, allergies reviewed. Pertinent Lab/Diagnostic Studies are reviewed and discussed today Current Outpatient Medications: multivitamin tablet Cholecalciferol, Vitamin D3, (VITAMIN D-3) 50 mcg (2,000 unit) cap estradiol (ESTRACE) 0.01 % (0.1 mg/gram) vaginal cream tobramycin-dexamethasone (TOBRADEX) ophthalmic ointment NEOMYCIN/POLYMYXIN B SULF/HC ([id number]-MX TOPICAL) Health Maintenance There are no preventive care reminders to display for this patient.@ Review Of Systems Constitutional: (-) insomnia Physical Exam BP 155/93 Pulse 60 Wt 63.9 kg (140 lb 12.8 oz) LMP (LMP Unknown) SpO2 100% BMI 24.55 kg/m? GENERAL: NAD, alert and oriented SKIN: unremarkable, no rash or skin lesions. HEAD: normocephalic EYES: PERRLA, EOMI, conjunctiva clear LUNGS: Clear to auscultation bilaterally, no wheezes/rhonchi/rales. HEART: Regular rate and rhythm, no murmurs. No ectopy. EXTREMITIES: Normal, No deformities, No skin discoloration, No edema. NEURO: Awake, alert and oriented x3, cranial nerves II-XII grossly intact, normal gait, no involuntary motions Labs: - Lipid Panel: Elevated cholesterol - Liver Function Tests: Elevated enzymes - Vitamin D test: Results not stated Tests: - Ankle-Brachial Index: Normal on the left, normal at rest on the right, no evidence of peripheral vascular disease Assessment and Plan 1. Elevated liver enzymes (R74.8) Recent lab results indicate elevated liver enzymes. Patient reports increased alcohol consumption (2-3 beers daily) during a recent vacation, which is higher than her usual intake of 1-2 beers per week. Patient has been off Doxycycline monohydrate for about a month, which she had been taking since 2016 for eye issues. - Recheck liver enzymes in 3 months. - Advised patient to monitor and limit alcohol intake. 2. Elevated BP without diagnosis of hypertension (R03.0) Home blood pressure readings generally in the 130s, with occasional higher readings up to 147/95 mmHg. In-office BP today was 143/80 mmHg. Patient is postmenopausal and has a family history of hypertension. Recent ASAD test showed normal results, indicating no significant peripheral vascular disease. ASCVD risk is 2.8%. - Advised patient to reduce dietary sodium intake, including hidden sources such as canned foods, chips, and pickles. - Encouraged regular exercise, aiming for at least 30 minutes of moderate-intensity activity 5 days a week. - Monitor blood pressure at home using a calibrated arm cuff. - Follow-up in 3 months to reassess blood pressure and liver enzymes. - If blood pressure remains elevated, consider initiating Norvasc 2.5 mg. Voice recognition software was used to compose this office note. Please excuse any unintended typographical errors. Recording using [employer] software for draft documentation of the visit was discussed with the patient/authorized publications sales representative; all questions welcomed and answered. Patient/authorized publications sales representative agreed to proceed Delilah Devries MD [facility] 09-07-2024 History of Present illness Narrative Reason for Visit Follow up HPI Anjel Mills is a 54-year-old female presenting for follow-up on elevated blood pressure readings. Anjel was seen a few weeks ago and had a blood pressure reading in the 140s. She was advised to monitor her blood pressure daily in the morning, which she has been doing using her home blood pressure cuff. She reports that her readings at home have been in the 130s, sometimes lower, with the highest reading being 147/95. She takes her blood pressure three times each morning after sitting quietly. However, she notes that her blood pressure was higher when taken with her home cuff today, reading 160/?. She has a family history of hypertension. She reports eating a healthy diet and being very active, engaging in gardening and farm work. She consumes homemade sauerkraut and pickles regularly. She is postmenopausal and has experienced hot flashes. She drinks 1-2 beers per week but recently consumed 2-3 beers per day during a week-long vacation in [place]. She denies heavy salt use but does use seasonings like [place]'s and pepper. Anjel has a history of eye issues for which she was taking doxycycline monohydrate since 2015 but stopped about a month ago. She currently takes a multivitamin and vitamin D supplement. She recently had blood work done, which showed elevated cholesterol and liver enzymes. She also had an ASAD test done by Dr. Hyman a couple of weeks ago. Social History Tobacco Use Smoking status: Never Passive exposure: Never Smokeless tobacco: Never Vaping Use Vaping status: Never Used Substance Use Topics Alcohol use: Yes Comment: Rarely Drug use: No Past medical history, appointments, medications, allergies reviewed. Pertinent Lab/Diagnostic Studies are reviewed and discussed today Current Outpatient Medications: multivitamin tablet Cholecalciferol, Vitamin D3, (VITAMIN D-3) 50 mcg (2,000 unit) cap estradiol (ESTRACE) 0.01 % (0.1 mg/gram) vaginal cream tobramycin-dexamethasone (TOBRADEX) ophthalmic ointment NEOMYCIN/POLYMYXIN B SULF/HC (AQRLCLFF-[id number]-ZL TOPICAL) Health Maintenance There are no preventive care reminders to display for this patient.@ Review Of Systems Constitutional: (-) insomnia Physical Exam BP 155/93 Pulse 60 Wt 63.9 kg (140 lb 12.8 oz) LMP (LMP Unknown) SpO2 100% BMI 24.55 kg/m GENERAL: NAD, alert and oriented SKIN: unremarkable, no rash or skin lesions. HEAD: normocephalic EYES: PERRLA, EOMI, conjunctiva clear LUNGS: Clear to auscultation bilaterally, no wheezes/rhonchi/rales. HEART: Regular rate and rhythm, no murmurs. No ectopy. EXTREMITIES: Normal, No deformities, No skin discoloration, No edema. NEURO: Awake, alert and oriented x3, cranial nerves II-XII grossly intact, normal gait, no involuntary motions Labs: - Lipid Panel: Elevated cholesterol - Liver Function Tests: Elevated enzymes - Vitamin D test: Results not stated Tests: - Ankle-Brachial Index: Normal on the left, normal at rest on the right, no evidence of peripheral vascular disease Assessment and Plan 1. Elevated liver enzymes (R74.8) Recent lab results indicate elevated liver enzymes. Patient reports increased alcohol consumption (2-3 beers daily) during a recent vacation, which is higher than her usual intake of 1-2 beers per week. Patient has been off Doxycycline monohydrate for about a month, which she had been taking since 2016 for eye issues. - Recheck liver enzymes in 3 months. - Advised patient to monitor and limit alcohol intake. 2. Elevated BP without diagnosis of hypertension (R03.0) Home blood pressure readings generally in the 130s, with occasional higher readings up to 147/95 mmHg. In-office BP today was 143/80 mmHg. Patient is postmenopausal and has a family history of hypertension. Recent ASAD test showed normal results, indicating no significant peripheral vascular disease. ASCVD risk is 2.8%. - Advised patient to reduce dietary sodium intake, including hidden sources such as canned foods, chips, and pickles. - Encouraged regular exercise, aiming for at least 30 minutes of moderate-intensity activity 5 days a week. - Monitor blood pressure at home using a calibrated arm cuff. - Follow-up in 3 months to reassess blood pressure and liver enzymes. - If blood pressure remains elevated, consider initiating Norvasc 2.5 mg. Voice recognition software was used to compose this office note. Please excuse any unintended typographical errors. Recording using [employer] software for draft documentation of the visit was discussed with the patient/authorized publications sales representative; all questions welcomed and answered. Patient/authorized publications sales representative agreed to proceed Delilah Devries MD documented in this encounter [facility] 08-24-2024 Instructions Yudi Franco APRN.STARR - 08/24/2024 7:52 AM EDT - Continue neomycin and tobramycin eye ointments as needed for your ocular rosacea. - You received the pneumococcal (pneumonia) vaccine today to protect against pneumococcal infection. - Complete the blood tests ordered this morning: lipid panel (cholesterol), kidney function, liver function, and complete blood count. The vitamin D test is scheduled for October--please do not repeat it now. - To help with your varicose veins and leg swelling, wear compression socks during prolonged periods on your feet. - Check your blood pressure at home two to three times per week: sit quietly for a few minutes after using the bathroom and before tea or coffee, with feet flat and arm at heart level; record each reading in a log. - Bring your home blood pressure cuff and log of readings to your next visit. - Return for follow-up in 2-4 weeks to review your home blood pressure readings and decide if any further treatment is needed. documented in this encounter [facility] 08-24-2024 Note HNO ID: [id number] Author: YUDI FRANCO APRN.FRENCH PASTRY COOK Service: ? Author Type: Nurse Practitioner Type: Progress Notes Filed: 08/24/2024 08:47 Note Text: CC: Patient presents with: Yearly Exam: Annual Physical HPI Anjel Mills is a 54 year old female who presents today for annual exam Recording using ambient [employer] software for draft documentation of the visit was discussed with the patient/authorized publications sales representative; all questions welcomed and answered. 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 - Uses neomycin and tobramycin ophthalmic ointments PRN for this instead - Currently using estradiol vaginal cream. - Family history includes melanoma - follows wit dermatology - Up to date on mammograms; last done in June, recommended follow up in 10 years - Last colonoscopy in 2020; normal results. 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 - Conscious of maintaining a healthy diet. Bunions: - Seen by Dr. Hyman in July for bunions; considering surgery. Started on Vit D to maintain adequate levels Varicose Veins: - Reports varicose veins; denies pain, redness, or discomfort. Elevated Blood Pressure: - Reports white coat syndrome. - Owns a blood pressure cuff but has not been checking blood pressure regularly. - Recent blood pressure readings average 136/78 mmHg. - Family history of heart disease. - denies chest pressure, shortness of breath, headaches, dizziness, edema, palpitations, or exercise intolerance. REVIEW OF SYSTEMS General: no fevers, no chills, no night sweats, no recurrent infections, no change in appetite, no change in energy, and no significant changes in weight Respiratory: no cough, no wheezing, no shortness of breath, no hemoptysis Cardiovascular: no chest pain, no chest pressure, no palpitations, and no swelling GI: No nausea, vomiting, or diarrhea : No history of dysuria, frequency or incontinence Psych: phq2 is 0, gad2 is 0 Endocrine: no fatigue, no cold intolerance, no heat intolerance, no polyuria, no polyphagia, and no polydipsia Neurologic: No headache, weakness, numbness dizziness, memory loss, syncope. PAST MEDICAL HISTORY Diagnosis Date Abnormal glandular Papanicolaou smear of cervix 2009 Abn. Pap smear (cervix) Ocular rosacea PAST SURGICAL HISTORY Procedure Laterality Date COLPOSCOPY CERVIX UPPER/ADJACENT VAGINA Colposcopy EYE SURGERY HX EYE SURGERY PROCEDURE 06/19/2013 Right Biopsy Conj./Abalation AND Cryo Lashes EYE SURGERY PROCEDURE 09/18/2013 Right Upper Eyelid HPG/ Rotation EYE SURGERY PROCEDURE 02/11/2014 RLL HPG/Rotation EYELID SURGERY PROCEDURE Right 02/18/2015 RLL hpg/rotation with elschnig skin PAST SURGICAL HISTORY OF fracture of left elbow PAST SURGICAL HISTORY OF 08/2019 left thumb; skin graft PCHG C SECTION DELIVERY due to preclampsia SKIN GRAFT HX Left 07/2019 Skin graft left thumb following exploration d/t traumatic laceration ALLERGIES Pistachio Nut and Seasonal Allergies MEDICATIONS multivitamin tablet Take 1 tablet by mouth once daily. Cholecalciferol, Vitamin D3, (VITAMIN D-3) 50 mcg (2,000 unit) cap Take 1 capsule by mouth once daily. estradiol (ESTRACE) 0.01 % (0.1 mg/gram) vaginal cream Use 0.5g vaginally at bedtime for 2 weeks then 1-3 time/weeks for maintenance. tobramycin-dexamethasone (TOBRADEX) ophthalmic ointment Use 1 application in both eyes daily at bedtime. NEOMYCIN/POLYMYXIN B SULF/HC ([id number] TOPICAL) Apply 1 Drop to affected area twice a week. FAMILY HISTORY Problem Relation Age of Onset other (Other) Mother she had two sets of twins and one cantrell Stroke Father Cancer Father melenoma Hypertension Father Diabetes Sister Diabetes Brother other (pulmonary embolism) Brother twin brother Heart Maternal Grandfather Heart Paternal Grandfather Breast Cancer Maternal Aunt 80's at time of diagnosis No Ocular Disease No Family History Social History Tobacco Use Smoking status: Never Passive exposure: Never Smokeless tobacco: Never Vaping Use Vaping status: Never Used Substance Use Topics Alcohol use: Yes Comment: Rarely Drug use: No PHYSICAL EXAM BP 136/78 Pulse 65 Resp 16 Wt 63 kg (139 lb) LMP (LMP Unknown) SpO2 98% BMI 24.23 kg/m? General Appearance: well appearing, in no acute distress, alert Pysch: mood and affect broad and appropriate Eyes: conjunctiva pink and moist, no icterus, sclera white, non-injected Neck: Thyroid normal size and symmetric without palpable nodules, Neck supple, No adenopathy Lymph nodes: No cervical lymphadenopathy and No supraclavicular lymphadenopathy Lungs: Lungs clear to auscultation. No wheezing, rhonchi, rales. Heart: RRR without murmur, gallop, or rubs. No e (more content not included)... [facility] 08-24-2024 History of Present illness Narrative CC: Patient presents with: Yearly Exam: Annual Physical HPI Anjel Mills is a 54 year old female who presents today for annual exam Recording using [employer] software for draft documentation of the visit was discussed with the patient/authorized publications sales representative; all questions welcomed and answered. 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 - Uses neomycin and tobramycin ophthalmic ointments PRN for this instead - Currently using estradiol vaginal cream. - Family history includes melanoma - follows wit dermatology - Up to date on mammograms; last done in June, recommended follow up in 10 years - Last colonoscopy in 2020; normal results. 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 - Conscious of maintaining a healthy diet. Bunions: - Seen by Dr. Hyman in July for bunions; considering surgery. Started on Vit D to maintain adequate levels Varicose Veins: - Reports varicose veins; denies pain, redness, or discomfort. Elevated Blood Pressure: - Reports white coat syndrome. - Owns a blood pressure cuff but has not been checking blood pressure regularly. - Recent blood pressure readings average 136/78 mmHg. - Family history of heart disease. - denies chest pressure, shortness of breath, headaches, dizziness, edema, palpitations, or exercise intolerance. REVIEW OF SYSTEMS General: no fevers, no chills, no night sweats, no recurrent infections, no change in appetite, no change in energy, and no significant changes in weight Respiratory: no cough, no wheezing, no shortness of breath, no hemoptysis Cardiovascular: no chest pain, no chest pressure, no palpitations, and no swelling GI: No nausea, vomiting, or diarrhea : No history of dysuria, frequency or incontinence Psych: phq2 is 0, gad2 is 0 Endocrine: no fatigue, no cold intolerance, no heat intolerance, no polyuria, no polyphagia, and no polydipsia Neurologic: No headache, weakness, numbness dizziness, memory loss, syncope. PAST MEDICAL HISTORY Diagnosis Date Abnormal glandular Papanicolaou smear of cervix 2009 Abn. Pap smear (cervix) Ocular rosacea PAST SURGICAL HISTORY Procedure Laterality Date COLPOSCOPY CERVIX UPPER/ADJACENT VAGINA Colposcopy EYE SURGERY HX EYE SURGERY PROCEDURE 06/19/2013 Right Biopsy Conj./Abalation & Cryo Lashes EYE SURGERY PROCEDURE 09/18/2013 Right Upper Eyelid HPG/ Rotation EYE SURGERY PROCEDURE 02/11/2014 RLL HPG/Rotation EYELID SURGERY PROCEDURE Right 02/18/2015 RLL hpg/rotation with elschnig skin PAST SURGICAL HISTORY OF fracture of left elbow PAST SURGICAL HISTORY OF 08/2019 left thumb; skin graft PCHG C SECTION DELIVERY due to preclampsia SKIN GRAFT HX Left 07/2019 Skin graft left thumb following exploration d/t traumatic laceration ALLERGIES [place]istachio Nut and Seasonal Allergies MEDICATIONS multivitamin tablet Take 1 tablet by mouth once daily. Cholecalciferol, Vitamin D3, (VITAMIN D-3) 50 mcg (2,000 unit) cap Take 1 capsule by mouth once daily. estradiol (ESTRACE) 0.01 % (0.1 mg/gram) vaginal cream Use 0.5g vaginally at bedtime for 2 weeks then 1-3 time/weeks for maintenance. tobramycin-dexamethasone (TOBRADEX) ophthalmic ointment Use 1 application in both eyes daily at bedtime. NEOMYCIN/POLYMYXIN B SULF/HC (FUMCHFXS-[id number]-SX TOPICAL) Apply 1 Drop to affected area twice a week. FAMILY HISTORY Problem Relation Age of Onset other (Other) Mother she had two sets of twins and one cantrell Stroke Father Cancer Father melenoma Hypertension Father Diabetes Sister Diabetes Brother other (pulmonary embolism) Brother twin brother Heart Maternal Grandfather Heart Paternal Grandfather Breast Cancer Maternal Aunt 80's at time of diagnosis No Ocular Disease No Family History Social History Tobacco Use Smoking status: Never Passive exposure: Never Smokeless tobacco: Never Vaping Use Vaping status: Never Used Substance Use Topics Alcohol use: Yes Comment: Rarely Drug use: No PHYSICAL EXAM BP 136/78 Pulse 65 Resp 16 Wt 63 kg (139 lb) LMP (LMP Unknown) SpO2 98% BMI 24.23 kg/m General Appearance: well appearing, in no acute distress, alert Pysch: mood and affect broad and appropriate Eyes: conjunctiva pink and moist, no icterus, sclera white, non-injected Neck: Thyroid normal size and symmetric without palpable nodules, Neck supple, No adenopathy Lymph nodes: No cervical lymphadenopathy and No supraclavicular lymphadenopathy Lungs: Lungs clear to auscultation. No wheezing, rhonchi, rales. Heart: RRR without murmur, gallop, or rubs. No ectopy Abdomen: Abdomen soft, non-tender. Bowel sounds normal. No masses, organomegaly Neurological: Gait normal. Reflexes normal and symmetric. speech normal, mental status intact, muscle tone normal, muscle strength normal Health maintenance reviewed with patient: Pneumococcal Vaccine: 50+(1 of 1 - PCV) Never done Mammogram Screening due on 06/12/2025 Depression Screening due on 08/24/2025 Anxiety Screening due on 08/24/2025 Diabetes Screening due on 09/26/2025 Cervical Cancer Screening due on 05/03/2027 Lipid Screening due on 09/27/2027 DTaP,Tdap,Td Vaccine(3 - Td or Tdap) due on 08/08/2029 Colorectal Cancer Screening due on 07/11/2030 Influenza Vaccine Completed Hepatitis C Screening Completed HIV Screening Completed Shingrix Vaccine Completed Covid-19 Vaccine Completed Hepatitis B Vaccine Discontinued DATA REVIEWED: No new labs Assessment/Plan 1. Annual physical exam (Z00.00) - Comprehensive physical examination performed; no abnormalities noted. - Patient is up to date on mammograms (last done in June) and colon cancer screening (last done in 2020). - No recent blood work drawn, but ordered, will be drawn after visit. - Follow-up in 2-4 weeks to review home blood pressure readings. 2. Elevated blood pressure reading (R03.0) - Blood pressure measured at 136/78 mmHg in office; likely due to white coat syndrome. - Educated patient on the importance of maintaining blood pressure below 130/80 mmHg to prevent vascular damage. - Advised patient to monitor blood pressure at home 2-3 times per week, using proper technique: sit with both feet flat on the floor, arm resting at chest height, after using the bathroom and before consuming tea. - Patient to bring home blood pressure cuff to next appointment to verify accuracy of readings. - Follow-up in 2-4 weeks to review home blood pressure readings. 3. Asymptomatic varicose veins of right lower extremity (I83.91) - No pain or tenderness reported. - Educated patient on signs of concern: redness, inflammation, tenderness, pain, enlargement, and swelling. - Recommended wearing compression socks to prevent blood pooling and reduce risk of tenderness and pain. - Advised maintaining a healthy weight, staying active, and following a healthy diet to manage condition. 4. 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 - Continue as needed use of neomycin and tobramycin ointments. - follow recommendations of ophthalmology 5. Family history of malignant neoplasm of skin (Z80.8) - Patient has a family history of melanoma and skin cancer. - Patient is under dermatological care., continue with recommendations and regular evaluations 6. Bunion (M21.619) - Patient is seeing Dr. Hyman for bunion management and is considering surgery. 7. Encounter for immunization (Z23) - Administered pneumococcal vaccine; discussed its efficacy in preventing pneumococcal pneumonia. 8. Screening for depression (Z13.31) - No feelings of depression, hopelessness, or worthlessness reported. 9. Encounter for screening examination for other mental health and behavioral disorders (Z13.39) Negative Prescription instructions reviewed with patient as applicable. Potential red flag symptoms discussed with the patient. Reviewed appropriate action plan to take if red flag symptoms occur. Patient agreeable to treatment plan. Yudi Franco APRN.CNP documented in this encounter [facility] 07-23-2024 Telephone encounter Note LV: 09/03/18 FV: None Patient's request for medication is as follows: Requested Prescriptions Pending Prescriptions Disp Refills Doxycycline Monohydrate 50 mg tablet [Pharmacy Med Name: DOXYCYC MONO TAB 50MG] 90 tablet 3 Sig: TAKE 1 TABLET ONCE DAILY Prescription(s) as above. Please process accordingly. Gabe Eldridge filed at 12/04/2018 11:11 AM Status: Signed Encounter Diagnosis ICD-10-CM 1. 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 Trichiasis of left lower eyelid H02.055 EPILATION OF TRICHIASIS, FORCEPS 4. Meibomian gland dysfunction (MGD) of upper and lower lids of both eyes H02.88A H02.88B 5. 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 I have seen and examined this patient. I have discussed the case and the management of this patient's care with the Resident/Fellow, if applicable. I also have reviewed and agree with the assessment and plan as stated above and agree with all of its relevant components. Gabe Arceo MD [facility] 07-23-2024 Miscellaneous Notes LV: 09/03/18 FV: None Patient's request for medication is as follows: Requested Prescriptions Pending Prescriptions Disp Refills Doxycycline Monohydrate 50 mg tablet [Pharmacy Med Name: DOXYCYC MONO TAB 50MG] 90 tablet 3 Sig: TAKE 1 TABLET ONCE DAILY Prescription(s) as above. Please process accordingly. Gabe Eldridge filed at 12/04/2018 11:11 AM Status: Signed Encounter Diagnosis ICD-10-CM 1. 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 Trichiasis of left lower eyelid H02.055 EPILATION OF TRICHIASIS, FORCEPS 4. Meibomian gland dysfunction (MGD) of upper and lower lids of both eyes H02.88A H02.88B 5. 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 I have seen and examined this patient. I have discussed the case and the management of this patient's care with the Resident/Fellow, if applicable. I also have reviewed and agree with the assessment and plan as stated above and agree with all of its relevant components. Gabe Arceo MD documented in this encounter [facility] 07-16-2024 Note HNO ID: [id number] Author: VIOLET HYMAN, ? Service: ? Author Type: Physician Type: Progress Notes Filed: 07/16/2024 08:52 Note Text: Hernan Martinez is a 54-year-old female presenting for evaluation of bilateral bunion pain. Bilateral Bunion Pain: - Pain localized to the bunion and toe area, exacerbated by walking and pushing off the toe. - Describes pain as aching when pressure is applied. 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 - Uses custom orthotics (obtained in 2018) with some relief, but not always able to wear them due to footwear limitations. - Wears UFOs for comfort. - Denies smoking or vaping. Cardiovascular: (-) cold extremities Musculoskeletal: (+) bilateral foot pain, (+) toe pain with push-off PAST MEDICAL HISTORY Diagnosis Date Abnormal glandular Papanicolaou smear of cervix 2009 Abn. Pap smear (cervix) Ocular rosacea Current Outpatient Medications Medication Sig Dispense Refill estradiol (ESTRACE) 0.01 % (0.1 mg/gram) vaginal cream Use 0.5g vaginally at bedtime for 2 weeks then 1-3 time/weeks for maintenance. 42.5 g 2 Doxycycline Monohydrate 50 mg tablet take 1 tablet once daily 90 tablet 3 tobramycin-dexamethasone (TOBRADEX) ophthalmic ointment Use 1 application in both eyes daily at bedtime. 1 Tube 5 NEOMYCIN/POLYMYXIN B SULF/HC ([id number]-[id number]-LE TOPICAL) Apply 1 Drop to affected area twice a week. No current facility-administered medications for this visit. Family History Problem Relation Age of Onset other (Other) Mother she had two sets of twins and one cantrell Stroke Father Cancer Father melenoma Hypertension Father Diabetes Sister Diabetes Brother other (pulmonary embolism) Brother twin brother Heart Maternal Grandfather Heart Paternal Grandfather Breast Cancer Maternal Aunt 80's at time of diagnosis No Ocular Disease No Family History Objective There were no vitals taken for this visit. - Cardiovascular: Dorsalis pedis pulses faint bilaterally; posterior tibial pulses palpable bilaterally; capillary refill <5 seconds. - Skin: No open sores noted bilaterally; skin well-hydrated; no corns or calluses between first and second toes. - Neurological: Protective sensation intact bilaterally. - Musculoskeletal: - Bilateral Feet: - Moderate to severe bunion deformity. - ROM: Diminished in first metatarsophalangeal joint bilaterally. - Pain with dorsiflexion and plantar flexion of first metatarsophalangeal joint; pain on palpation of plantar sesamoids bilaterally. - Strength: 5/5 for plantar flexion, dorsiflexion, inversion, and eversion. - Additional Findings: Skin temperature warm; hair growth present. 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 Hallux valgus of left foot (M20.12) 2. Hallux valgus of right foot (M20.11) - Moderate to severe bunion deformity noted on radiographs, right worse than left. - Discussed conservative management including wider shoes, orthotics, and toe spacers. - Discussed surgical options: Lapidus bunionectomy vs. metatarsophalangeal joint fusion. if lapidus bunionectomy was performed, would require midfoot procedure to address adductus. However, my concern is that she may still have pain in the great toe as she has component of hallux rigidus. If she were interested in correcting both, I think a fusion of the first mtpj may be more appropriate. - Patient leaning towards surgical intervention in late fall or early winter. - Will follow up in early fall to reassess and plan for potential surgery. 3. Hallux rigidus of left foot (M20.22) 4. Hallux rigidus of right foot (M20.21) - Asymmetrical joint space narrowing of the first metatarsophalangeal joint noted on radiographs. - Pain present with dorsiflexion and plantar flexion of first metatarsophalangeal joint bilaterally. - Discussed metatarsophalangeal joint fusion as a surgical option to address both bunion and arthritic changes. 5. Diminished pulses in lower extremity (R09.89) - Dorsalis pedis pulses are faint bilaterally; posterior tibial pulses are palpable bilaterally. - Ordered PVR with toe pressures to assess circulation. - Ordered Vitamin D level to ensure adequacy for potential surgical intervention. Attestation Recording using FirmPlay software for draft documentation of the visit was discussed with the patient/authorized publications sales representative; all questions welcomed and answered. Patient/authorized publications sales representative agreed to proceed Violet Hyman DPM [facility] 07-16-2024 History of Present illness Narrative Hernan Martinez is a 54-year-old female presenting for evaluation of bilateral bunion pain. Bilateral Bunion Pain: - Pain localized to the bunion and toe area, exacerbated by walking and pushing off the toe. - Describes pain as aching when pressure is applied. 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 - Uses custom orthotics (obtained in 2018) with some relief, but not always able to wear them due to footwear limitations. - Wears UFOs for comfort. - Denies smoking or vaping. Cardiovascular: (-) cold extremities Musculoskeletal: (+) bilateral foot pain, (+) toe pain with push-off PAST MEDICAL HISTORY Diagnosis Date Abnormal glandular Papanicolaou smear of cervix 2009 Abn. Pap smear (cervix) Ocular rosacea Current Outpatient Medications Medication Sig Dispense Refill estradiol (ESTRACE) 0.01 % (0.1 mg/gram) vaginal cream Use 0.5g vaginally at bedtime for 2 weeks then 1-3 time/weeks for maintenance. 42.5 g 2 Doxycycline Monohydrate 50 mg tablet take 1 tablet once daily 90 tablet 3 tobramycin-dexamethasone (TOBRADEX) ophthalmic ointment Use 1 application in both eyes daily at bedtime. 1 Tube 5 NEOMYCIN/POLYMYXIN B SULF/HC ([id number]-DJ TOPICAL) Apply 1 Drop to affected area twice a week. No current facility-administered medications for this visit. Family History Problem Relation Age of Onset other (Other) Mother she had two sets of twins and one cantrell Stroke Father Cancer Father melenoma Hypertension Father Diabetes Sister Diabetes Brother other (pulmonary embolism) Brother twin brother Heart Maternal Grandfather Heart Paternal Grandfather Breast Cancer Maternal Aunt 80's at time of diagnosis No Ocular Disease No Family History Objective There were no vitals taken for this visit. - Cardiovascular: Dorsalis pedis pulses faint bilaterally; posterior tibial pulses palpable bilaterally; capillary refill <5 seconds. - Skin: No open sores noted bilaterally; skin well-hydrated; no corns or calluses between first and second toes. - Neurological: Protective sensation intact bilaterally. - Musculoskeletal: - Bilateral Feet: - Moderate to severe bunion deformity. - ROM: Diminished in first metatarsophalangeal joint bilaterally. - Pain with dorsiflexion and plantar flexion of first metatarsophalangeal joint; pain on palpation of plantar sesamoids bilaterally. - Strength: 5/5 for plantar flexion, dorsiflexion, inversion, and eversion. - Additional Findings: Skin temperature warm; hair growth present. 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 Hallux valgus of left foot (M20.12) 2. Hallux valgus of right foot (M20.11) - Moderate to severe bunion deformity noted on radiographs, right worse than left. - Discussed conservative management including wider shoes, orthotics, and toe spacers. - Discussed surgical options: Lapidus bunionectomy vs. metatarsophalangeal joint fusion. if lapidus bunionectomy was performed, would require midfoot procedure to address adductus. However, my concern is that she may still have pain in the great toe as she has component of hallux rigidus. If she were interested in correcting both, I think a fusion of the first mtpj may be more appropriate. - Patient leaning towards surgical intervention in late fall or early winter. - Will follow up in early fall to reassess and plan for potential surgery. 3. Hallux rigidus of left foot (M20.22) 4. Hallux rigidus of right foot (M20.21) - Asymmetrical joint space narrowing of the first metatarsophalangeal joint noted on radiographs. - Pain present with dorsiflexion and plantar flexion of first metatarsophalangeal joint bilaterally. - Discussed metatarsophalangeal joint fusion as a surgical option to address both bunion and arthritic changes. 5. Diminished pulses in lower extremity (R09.89) - Dorsalis pedis pulses are faint bilaterally; posterior tibial pulses are palpable bilaterally. - Ordered PVR with toe pressures to assess circulation. - Ordered Vitamin D level to ensure adequacy for potential surgical intervention. Attestation Recording using FirmPlay software for draft documentation of the visit was discussed with the patient/authorized publications sales representative; all questions welcomed and answered. Patient/authorized publications sales representative agreed to proceed Violet Hyman DPM Patient presents with: Left Foot - New, Pain Right Foot - New, Pain AMB ROOMING INTAKE FLOWSHEET DATA Pain Pain Level: 4 Pain Location: Foot-Left Description: Aching Duration Amount of Time: 4 Duration Units: Hours Frequency: Intermittent Intervention/Comfort measure: Relaxation Patient presents for bilateral foot bunions that have been ongoing for years and intermittent pain. Patient has custom orthotics that are a few years old. Xray prior to appointment. documented in this encounter [facility] 07-16-2024 Instructions Violet Hyman - 07/16/2024 8:23 AM EDT You have been diagnosed with arthritic bunions (hallux rigidus and hallux valgus) affecting both feet. Continue to use wider, comfortable shoes and your custom orthotics/inserts when possible to help ease discomfort. We will be ordering a PVR test with toe pressures and a vitamin D level blood test; please schedule and complete these tests at the designated lab location. We will follow up with you in early fall to review your test results and discuss treatment options, including potential surgical solutions if you choose to proceed. documented in this encounter [facility] 07-16-2024 History of Present illness Narrative Radiology Service Progress Note PATIENT NAME: Anjel Mills DATE OF SERVICE: July 16, 2024 TIME: 7:55 AM PATIENT IDENTITY VERIFICATION COMPLETED USING TWO (2) IDENTIFIERS: Name and Date of confirmed by patient verbally. FALL SCREENING: Has the patient had 2 falls in the last year or 1 fall with injury or currently using an Ambulatory Assistive Device (Walker, Cane, Wheelchair, Crutches, etc.)? No PATIENT GENDER DATA: Assigned female at . status: : No status: NO. PATIENT RELEVANT IMPLANT DATA REVIEWED: Not Applicable PATIENT PRESENTS WITH AN IMPLANTABLE OR ATTACHED MACHINE STONE POLISHER APPRENTICE: No RADIOLOGY DEPARTMENT: General X-ray: Exam(s) Completed: Lower Extremity X-Ray(s): Foot, Bilateral and Wt. Bearing PERIPHERAL IV DATA: Not applicable SIGNED BY: ANGELI Martines) July 16, 2024 7:55 AM documented in this encounter [facility] 07-16-2024 Note HNO ID: [id number] Author: RHONA EVANS RT(R) Service: ? Author Type: Technologist Type: Progress Notes Filed: 07/16/2024 07:56 Note Text: Radiology Service Progress Note PATIENT NAME: Anjel Mills DATE OF SERVICE: July 16, 2024 TIME: 7:55 AM PATIENT IDENTITY VERIFICATION COMPLETED USING TWO (2) IDENTIFIERS: Name and Date of confirmed by patient verbally. FALL SCREENING: Has the patient had 2 falls in the last year or 1 fall with injury or currently using an Ambulatory Assistive Device (Walker, Cane, Wheelchair, Crutches, etc.)? No PATIENT GENDER DATA: Assigned female at . status: : No status: NO. PATIENT RELEVANT IMPLANT DATA REVIEWED: Not Applicable PATIENT PRESENTS WITH AN IMPLANTABLE OR ATTACHED MACHINE STONE POLISHER APPRENTICE: No RADIOLOGY DEPARTMENT: General X-ray: Exam(s) Completed: Lower Extremity X-Ray(s): Foot, Bilateral and Wt. Bearing PERIPHERAL IV DATA: Not applicable SIGNED BY: ANGELI Martines) July 16, 2024 7:[address] [facility] 07-16-2024 Note HNO ID: [id number] Author: MERNA CHENEY RN Service: ? Author Type: Registered Nurse Type: Progress Notes Filed: 07/16/2024 08:52 Note Text: Patient presents with: Left Foot - New, Pain Right Foot - New, Pain AMB ROOMING INTAKE FLOWSHEET DATA Pain Pain Level: 4 Pain Location: Foot-Left Description: Aching Duration Amount of Time: 4 Duration Units: Hours Frequency: Intermittent Intervention/Comfort measure: Relaxation Patient presents for bilateral foot bunions that have been ongoing for years and intermittent pain. Patient has custom orthotics that are a few years old. Xray prior to appointment. [facility] 06-12-2024 Note HNO ID: [id number] Author: CONSTANCE PADILLA APRN.CNP Service: ? Author Type: Nurse Practitioner Type: Progress Notes Filed: 06/12/2024 09:46 Note Text: Patient declined automotive tire testing supervisorJesus Martinez is a 54 year old who presents for an annual gynecologic exam without complaints. Postmenopausal: Yes since 50 HRT use: No. Last Pap: 05/09/2022 normal HPV: 05/08/2022 negative History of abnormal pap: Yes, 2009 age 38-39 years, Colposcopy Last mammogram: 2024 pending History of abnormal mammogram: Pt reported 2012 abnormal mammogram Dx scar tissue. Sexually active: Yes Vaginal dryness: Yes OB History Gravida1 Para1 Term0 Preterm1 AB0 Living1 SAB0 IAB0 Ectopic0 Multiple0 Live Births1 FAMILY HISTORY Problem Relation Age of Onset other (Other) Mother she had two sets of twins and one cantrell Stroke Father Cancer Father melenoma Hypertension Father Diabetes Sister Diabetes Brother other (pulmonary embolism) Brother twin brother Heart Maternal Grandfather Heart Paternal Grandfather Breast Cancer Maternal Aunt 80's at time of diagnosis No Ocular Disease No Family History SOCIAL HISTORY Social History Tobacco Use Smoking status: Never Passive exposure: Never Smokeless tobacco: Never Vaping Use Vaping status: Never Used Substance Use Topics Alcohol use: Yes Comment: Rarely Drug use: No REVIEW OF SYSTEMS Abdomen: No abdominal pain, nausea, vomiting, diarrhea, or constipation. No bloating, early satiety, indigestion, or increased flatulence. Bladder: No dysuria, gross hematuria, urinary frequency, urinary urgency, or incontinence Breast: No breast lumps, nipple d/c, overlying skin changes, redness or skin retraction Allergies and current medication updated:Yes SENSITIVE EXAM: The sensitive examination was discussed with the Patient or Patient's Authorized Firebrick Layer. As applicable, any other physician, advance practice provider, medical student, or other health professional student that will be observing or involved in the sensitive examination for educational or training purposes was discussed with the Patient or Authorized Firebrick Layer. The Patient or Authorized Firebrick Layer has agreed to proceed with the sensitive examination. (Sensitive examination includes inspection and/or palpation of the breasts, pelvis, prostate and anorectal regions). EXAM: BP 124/78 Ht 5' 3.504 (1.61m) Wt 140 lb 9.6 oz (63.8kg) BMI 24.51 kg/(m2). GENERAL: pleasant, female in no apparent distress HEENT: Normocephalic, atraumatic, mucus membranes moist, and no lesions DERMATOLOGY: Normal, without lesions, non-icteric, and non-hirsute BREAST: soft, non-tender, symmetric, no dominant mass, normal nipple-areolar complex, no lymphadenopathy, and no nipple discharge CHEST: Normal inspiratory effort ABDOMEN: soft, non-tender, and no masses PELVIC: external genitalia normal, normal Bartholin's glands, urethra, Hildebran's glands, no vulvar lesions, no cervical lesions, physiologic discharge present, normal appearing perineal body and perianal region BIMANUAL: uterus normal size, shape and consistency, no adnexal masses, and non-tender RECTOVAGINAL: deferred. NEURO: alert and oriented x3,exam grossly non-focal EXTREMITIES: normal ASSESSMENT/PLAN: 1) Health maintenance: Pap/HPV up to date. Mammogram ordered Mammogram up to date Nutrition, exercise and routine health maintenance exams reviewed. Calcium/Vitamin D supplementation information provided. Colon cancer screening: up to date with screening 2) Follow up one year or sooner as needed 3) vaginal dryness- Estrace cream ordered Constance Padilla APRN.STARR 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 Anjel is a 54 year old who presents for an annual gynecologic exam without complaints. Postmenopausal: Yes since 50 HRT use: No. Last Pap: 05/09/2022 normal HPV: 05/08/2022 negative History of abnormal pap: Yes, 2010 age 38-39 years, Colposcopy Last mammogram: 2024 pending History of abnormal mammogram: Pt reported 2012 abnormal mammogram Dx scar tissue. Sexually active: Yes Vaginal dryness: Yes OB History Gravida1 Para1 Term0 Preterm1 AB0 Living1 SAB0 IAB0 Ectopic0 Multiple0 Live Births1 FAMILY HISTORY Problem Relation Age of Onset other (Other) Mother she had two sets of twins and one cantrell Stroke Father Cancer Father melenoma Hypertension Father Diabetes Sister Diabetes Brother other (pulmonary embolism) Brother twin brother Heart Maternal Grandfather Heart Paternal Grandfather Breast Cancer Maternal Aunt 80's at time of diagnosis No Ocular Disease No Family History SOCIAL HISTORY Social History Tobacco Use Smoking status: Never Passive exposure: Never Smokeless tobacco: Never Vaping Use Vaping status: Never Used Substance Use Topics Alcohol use: Yes Comment: Rarely Drug use: No REVIEW OF SYSTEMS Abdomen: No abdominal pain, nausea, vomiting, diarrhea, or constipation. No bloating, early satiety, indigestion, or increased flatulence. Bladder: No dysuria, gross hematuria, urinary frequency, urinary urgency, or incontinence Breast: No breast lumps, nipple d/c, overlying skin changes, redness or skin retraction Allergies and current medication updated:Yes SENSITIVE EXAM: The sensitive examination was discussed with the Patient or Patient's Authorized Firebrick Layer. As applicable, any other physician, advance practice provider, medical student, or other health professional student that will be observing or involved in the sensitive examination for educational or training purposes was discussed with the Patient or Authorized Firebrick Layer. The Patient or Authorized Firebrick Layer has agreed to proceed with the sensitive examination. (Sensitive examination includes inspection and/or palpation of the breasts, pelvis, prostate and anorectal regions). EXAM: BP 124/78 Ht 5' 3.504 (1.61m) Wt 140 lb 9.6 oz (63.8kg) BMI 24.51 kg/(m^2). GENERAL: pleasant, female in no apparent distress HEENT: Normocephalic, atraumatic, mucus membranes moist, and no lesions DERMATOLOGY: Normal, without lesions, non-icteric, and non-hirsute BREAST: soft, non-tender, symmetric, no dominant mass, normal nipple-areolar complex, no lymphadenopathy, and no nipple discharge CHEST: Normal inspiratory effort ABDOMEN: soft, non-tender, and no masses PELVIC: external genitalia normal, normal Bartholin's glands, urethra, Hildebran's glands, no vulvar lesions, no cervical lesions, physiologic discharge present, normal appearing perineal body and perianal region BIMANUAL: uterus normal size, shape and consistency, no adnexal masses, and non-tender RECTOVAGINAL: deferred. NEURO: alert and oriented x3,exam grossly non-focal EXTREMITIES: normal ASSESSMENT/PLAN: 1) Health maintenance: Pap/HPV up to date. Mammogram ordered Mammogram up to date Nutrition, exercise and routine health maintenance exams reviewed. Calcium/Vitamin D supplementation information provided. Colon cancer screening: up to date with screening 2) Follow up one year or sooner as needed 3) vaginal dryness- Estrace cream ordered Constance Padilla APRN.CNP documented in this encounter [facility] 06-12-2024 History of Present illness Narrative Radiology Service Progress Note PATIENT NAME: Anjel Mills DATE OF SERVICE: June 12, 2024 TIME: 8:56 AM PATIENT IDENTITY VERIFICATION COMPLETED USING TWO (2) IDENTIFIERS: Name and Date of confirmed by patient verbally. FALL SCREENING: Has the patient had 2 falls in the last year or 1 fall with injury or currently using an Ambulatory Assistive Device (Walker, Cane, Wheelchair, Crutches, etc.)? No PATIENT GENDER DATA: Assigned female at . status: : No status: NO. PATIENT RELEVANT IMPLANT DATA REVIEWED: Not Applicable PATIENT PRESENTS WITH AN IMPLANTABLE OR ATTACHED MACHINE STONE POLISHER APPRENTICE: No RADIOLOGY DEPARTMENT: Mammography PERIPHERAL IV DATA: Not applicable SIGNED BY: RT Madiha(Victoria) June 12, 2024 8:56 AM documented in this encounter [facility] 06-12-2024 Note HNO ID: [id number] Author: AYDE OSUNA RT(Victoria) Service: ? Author Type: Technologist Type: Progress Notes Filed: 06/12/2024 08:56 Note Text: Radiology Service Progress Note PATIENT NAME: Anjel Mills DATE OF SERVICE: June 12, 2024 TIME: 8:56 AM PATIENT IDENTITY VERIFICATION COMPLETED USING TWO (2) IDENTIFIERS: Name and Date of confirmed by patient verbally. FALL SCREENING: Has the patient had 2 falls in the last year or 1 fall with injury or currently using an Ambulatory Assistive Device (Walker, Cane, Wheelchair, Crutches, etc.)? No PATIENT GENDER DATA: Assigned female at . status: : No status: NO. PATIENT RELEVANT IMPLANT DATA REVIEWED: Not Applicable PATIENT PRESENTS WITH AN IMPLANTABLE OR ATTACHED MACHINE STONE POLISHER APPRENTICE: No RADIOLOGY DEPARTMENT: Mammography PERIPHERAL IV DATA: Not applicable SIGNED BY: RT Madiha(R) June 12, 2024 8:[address] [facility] 08-06-2023 Telephone encounter Note Anjel Mills [facility] [id number] 09/03/18 [facility] None Pharmacy electronically requesting refills as follows: Requested Prescriptions Pending Prescriptions Disp Refills Doxycycline Monohydrate 50 mg tablet [Pharmacy Med Name: DOXYCYC MONO TAB 50MG] 90 tablet 3 Sig: take 1 tablet once daily Please review and advise. Kasia Evans Assessment & [place]abe [place] filed at 12/04/2018 11:11 AM Status: Signed Encounter Diagnosis ICD-10-CM 1. 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 Trichiasis of left lower eyelid H02.055 EPILATION OF TRICHIASIS, FORCEPS 4. Meibomian gland dysfunction (MGD) of upper and lower lids of both eyes H02.88A H02.88B 5. 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 08-06-2023 Miscellaneous Notes Anjel Mills [facility] [id number] 09/03/18 [facility] None Pharmacy electronically requesting refills as follows: Requested Prescriptions Pending Prescriptions Disp Refills Doxycycline Monohydrate 50 mg tablet [Pharmacy Med Name: DOXYCYC MONO TAB 50MG] 90 tablet 3 Sig: take 1 tablet once daily Please review and advise. Kasia Evans Assessment & Plan Gabe Arceo filed at 12/04/2018 11:11 AM Status: Signed Encounter Diagnosis ICD-10-CM 1. 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 Trichiasis of left lower eyelid H02.055 EPILATION OF TRICHIASIS, FORCEPS 4. Meibomian gland dysfunction (MGD) of upper and lower lids of both eyes H02.88A H02.88B 5. 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 06-11-2023 Miscellaneous Notes June 11, 2023 PID: [id number] Anjel Mills [address] [place] [address] [address] [place] [address] Dear Twila, We are pleased to inform you that the results of your recent breast imaging exam on 06/10/2023 are normal. Early detection of cancer is very important. We also understand recommendations regarding breast cancer screening are controversial. Please discuss with your primary care provider which strategy is best for you and whether a mammogram is right for you. Your imaging studies and report will be kept on file at [facility] as part of your permanent medical record and are available for your continuing care. Thank you for allowing us to help in meeting your health care needs. Sincerely, Dr. Yoon Interpreting Radiologist [facility] (Normal over 40) documented in this encounter [facility] 06-10-2023 History of Present illness Narrative Coating Operator offered: Patient declinesJesus Martinez is a 53 year old who presents for an annual gynecologic exam without complaints. Postmenopausal: Yes HRT use: No. Last Pap: 05/09/2022 normal HPV: 05/08/2022 negative History of abnormal pap: No Last mammogram: 2023 pending History of abnormal mammogram: No Sexually active: Yes Pain with intercourse: No Postcoital bleeding: No OB History T0 L1 SAB0 IAB0 Ectopic0 Multiple0 Live Births1 Spot Remover History LMP: LMP Unknown, Postmenopausal Age at Menarche: Age at First : Age at Menopause: Spot Remover History Comments: Sexual Activity: Yes; Male Contraception: No contraception data on record PAST MEDICAL HISTORY Diagnosis Date Abnormal glandular Papanicolaou smear of cervix 2009 Abn. Pap smear (cervix) Ocular rosacea PAST SURGICAL HISTORY Procedure Laterality Date COLPOSCOPY CERVIX UPPER/ADJACENT VAGINA Colposcopy EYE SURGERY HX EYE SURGERY PROCEDURE 06/19/2013 Right Biopsy Conj./Abalation & Cryo Lashes EYE SURGERY PROCEDURE 09/18/2013 Right Upper Eyelid HPG/ Rotation EYE SURGERY PROCEDURE 02/11/2014 RLL HPG/Rotation EYELID SURGERY PROCEDURE Right 02/18/2015 RLL hpg/rotation with elschnig skin PAST SURGICAL HISTORY OF fracture of left elbow PAST SURGICAL HISTORY OF 08/2019 left thumb; skin graft PCHG C SECTION DELIVERY due to preclampsia SKIN GRAFT HX Left 07/2019 Skin graft left thumb following exploration d/t traumatic laceration FAMILY HISTORY Problem Relation Age of Onset other (Other) Mother she had two sets of twins and one cantrell Stroke Father Cancer Father melenoma Hypertension Father Diabetes Sister Diabetes Brother other (pulmonary embolism) Brother twin brother Heart Maternal Grandfather Heart Paternal Grandfather Breast Cancer Maternal Aunt 80's at time of diagnosis No Ocular Disease No Family History SOCIAL HISTORY Social History Tobacco Use Smoking status: Never Passive exposure: Never Smokeless tobacco: Never Vaping Use Vaping Use: Never used Substance Use Topics Alcohol use: Yes Comment: Rarely Drug use: No REVIEW OF SYSTEMS Abdomen: No abdominal pain, nausea, vomiting, diarrhea, or constipation. No bloating, early satiety, indigestion, or increased flatulence. Bladder: No dysuria, gross hematuria, urinary frequency, urinary urgency, or incontinence Breast: No breast lumps, nipple d/c, overlying skin changes, redness or skin retraction Allergies and current medication updated:Yes EXAM: Ht 5' 3.5 (1.61m) Wt 137 lb (62.1kg) BMI 23.88 kg/(m^2). GENERAL: pleasant, female in no apparent distress HEENT: Normocephalic, atraumatic, mucus membranes moist, and no lesions NECK: Supple, full range of motion, no adenopathy, and thyroid normal DERMATOLOGY: Normal, without lesions, non-icteric, and non-hirsute BREAST: soft, non-tender, symmetric, no dominant mass, normal nipple-areolar complex, no lymphadenopathy, and no nipple discharge CHEST: Normal inspiratory effort ABDOMEN: soft, non-tender, and no masses PELVIC: external genitalia normal, normal Bartholin's glands, urethra, Hildebran's glands, no vulvar lesions, no cervical lesions, good vaginal support, physiologic discharge present, normal appearing perineal body and perianal region BIMANUAL: uterus normal size, shape and consistency, no adnexal masses, and non-tender RECTOVAGINAL: deferred. NEURO: alert and oriented x3,exam grossly non-focal EXTREMITIES: normal ASSESSMENT/PLAN: 1) Health maintenance: Pap/HPV up to date. Mammogram ordered Mammogram up to date Nutrition, exercise and routine health maintenance exams reviewed. Calcium/Vitamin D supplementation information provided. Colon cancer screening: up to date with screening 2) Follow up one year or sooner as needed Constance Padilla APRN.CNP documented in this encounter [facility] 06-10-2023 History of Present illness Narrative Radiology Service Progress Note PATIENT NAME: Anjel Mills DATE OF SERVICE: June 10, 2023 TIME: 10:03 AM PATIENT IDENTITY VERIFICATION COMPLETED USING TWO (2) IDENTIFIERS: Name and Date of confirmed by patient verbally. FALL SCREENING: Has the patient had 2 falls in the last year or 1 fall with injury or currently using an Ambulatory Assistive Device (Walker, Cane, Wheelchair, Crutches, etc.)? No PATIENT GENDER DATA: Female. status: : No status: NO. PATIENT RELEVANT IMPLANT DATA REVIEWED: Not Applicable PATIENT PRESENTS WITH AN IMPLANTABLE OR ATTACHED MACHINE STONE POLISHER APPRENTICE: No RADIOLOGY DEPARTMENT: Mammography PERIPHERAL IV DATA: Not applicable SIGNED BY: Grady Joneso Rosalva June 10, 2023 10:03 AM documented in this encounter [facility] 06-04-2023 Miscellaneous Notes Order linked to upcoming appointment. Ansley Yuan RN Order filed. Constance Padilla APRN.STARR Could we have a screening mammogram order? Pt has appt with us on 06/09. Thanks a million documented in this encounter [facility] 08-16-2022 Miscellaneous Notes LV: 12/04/18 FV: None Patient's request for medication is as follows: Requested Prescriptions Pending Prescriptions Disp Refills Doxycycline Monohydrate 50 mg tablet [Pharmacy Med Name: DOXYCYC MONO TAB 50MG] 90 tablet 3 Sig: TAKE 1 TABLET ONCE DAILY Prescription(s) as above. Please process accordingly. Paul Arceo filed at 12/04/2018 11:11 AM Status: Signed Encounter Diagnosis ICD-10-CM 1. 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 Trichiasis of left lower eyelid H02.055 EPILATION OF TRICHIASIS, FORCEPS 4. Meibomian gland dysfunction (MGD) of upper and lower lids of both eyes H02.88A H02.88B 5. 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 I have seen and examined this patient. I have discussed the case and the management of this patient's care with the Resident/Fellow, if applicable. I also have reviewed and agree with the assessment and plan as stated above and agree with all of its relevant components. Gabe Arceo MD documented in this encounter [facility] 05-03-2022 History of Present illness Narrative Coating Operator offered: Patient declinesJesus Martinez is a 52 year old who presents for an annual gynecologic exam without complaints. Postmenopausal: Yes HRT use: No. Last Pap: 02/21/2018 normal HPV: 02/15/2018 negative History of abnormal pap: No Last mammogram: today OB History T0 L1 SAB0 IAB0 Ectopic0 Multiple0 Live Births1 Spot Remover History LMP: LMP Unknown, Postmenopausal Age at Menarche: Age at First : Age at Menopause: Spot Remover History Comments: Sexual Activity: Yes; Male Contraception: No contraception data on record PAST MEDICAL HISTORY Diagnosis Date Abnormal glandular Papanicolaou smear of cervix 2009 Abn. Pap smear (cervix) Ocular rosacea PAST SURGICAL HISTORY Procedure Laterality Date COLPOSCOPY CERVIX UPPER/ADJACENT VAGINA Colposcopy EYE SURGERY HX EYE SURGERY PROCEDURE 06/19/2013 Right Biopsy Conj./Abalation & Cryo Lashes EYE SURGERY PROCEDURE 09/18/2013 Right Upper Eyelid HPG/ Rotation EYE SURGERY PROCEDURE 02/11/2014 RLL HPG/Rotation EYELID SURGERY PROCEDURE Right 02/18/2015 RLL hpg/rotation with elschnig skin PAST SURGICAL HISTORY OF fracture of left elbow PAST SURGICAL HISTORY OF 08/2019 left thumb; skin graft PCHG C SECTION DELIVERY due to preclampsia SKIN GRAFT HX Left 07/2019 Skin graft left thumb following exploration d/t traumatic laceration FAMILY HISTORY Problem Relation Age of Onset other (Other) Mother she had two sets of twins and one cantrell Stroke Father Cancer Father melenoma Hypertension Father Diabetes Sister Diabetes Brother other (pulmonary embolism) Brother twin brother Heart Maternal Grandfather Heart Paternal Grandfather Breast Cancer Maternal Aunt 80's at time of diagnosis No Ocular Disease No Family History SOCIAL HISTORY Social History Tobacco Use Smoking status: Never Smokeless tobacco: Never Vaping Use Vaping Use: Never used Substance Use Topics Alcohol use: Yes Comment: Rarely Drug use: No REVIEW OF SYSTEMS Abdomen: No abdominal pain, nausea, vomiting, diarrhea, or constipation. No bloating, early satiety, indigestion, or increased flatulence. Bladder: No dysuria, gross hematuria, urinary frequency, urinary urgency, or incontinence Breast: No breast lumps, nipple d/c, overlying skin changes, redness or skin retraction Allergies and current medication updated:Yes EXAM: BP 124/76 Ht 5' 4 (1.63m) Wt 142 lb 3.2 oz (64.5kg) BMI 24.40 kg/(m^2). GENERAL: pleasant, female in no apparent distress BREAST: soft, non-tender, symmetric, no dominant mass, normal nipple-areolar complex, no lymphadenopathy, and no nipple discharge CHEST: Normal inspiratory effort ABDOMEN: soft, non-tender, and no masses PELVIC: external genitalia normal, no vulvar lesions, no cervical lesions, normal appearing perineal body and perianal region; atrophic vagina BIMANUAL: uterus normal size, shape and consistency, no adnexal masses, and non-tender RECTOVAGINAL: rectovaginal exam negative for any masses or nodularity. NEURO: alert and oriented x3,exam grossly non-focal EXTREMITIES: normal ASSESSMENT/PLAN: 1) Health maintenance: Pap done with HPV. Mammogram today Nutrition, exercise and routine health maintenance exams reviewed. Colon cancer screening: up to date with screening 2) Follow up one year or sooner as needed 3) Atrophic vaginitis - discussed R/B/A of replenes vs vaginal estrogen. Patient will contact office if desires to proceed with vaginal estrogen. Hernan Bone MD documented in this encounter [facility] 05-03-2022 History of Present illness Narrative Radiology Service Progress Note PATIENT NAME: Anjel Mills DATE OF SERVICE: May 03, 2022 TIME: 2:46 PM PATIENT IDENTITY VERIFICATION COMPLETED USING TWO (2) IDENTIFIERS: Name and Date of confirmed by patient verbally. FALL SCREENING: Has the patient had 2 falls in the last year or 1 fall with injury or currently using an Ambulatory Assistive Device (Walker, Cane, Wheelchair, Crutches, etc.)? No PATIENT GENDER DATA: Female. status: : No status: NO. PATIENT RELEVANT IMPLANT DATA REVIEWED: Not Applicable RADIOLOGY DEPARTMENT: Mammography PERIPHERAL IV DATA: Not applicable SIGNED BY: Ventura Hudson May 03, 2022 2:46 PM documented in this encounter [facility] 03-29-2022 Miscellaneous Notes Patient scheduled documented in this encounter [facility] 08-28-2021 Miscellaneous Notes LV: 12/04/18 FV: None Patient's request for medication is as follows: Pending Prescriptions Disp Refills DOXYCYCLINE MONOHYDRATE 50 MG TABLET 90 tablet 3 Sig: TAKE 1 TABLET ONCE DAILY TONY: Yes Prescription(s) as above. Please process accordingly. Paul Arceo filed at 12/04/2018 11:11 AM Status: Signed Encounter Diagnosis ICD-10-CM 1. 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 Trichiasis of left lower eyelid H02.055 EPILATION OF TRICHIASIS, FORCEPS 4. Meibomian gland dysfunction (MGD) of upper and lower lids of both eyes H02.88A H02.88B 5. 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 I have seen and examined this patient. I have discussed the case and the management of this patient's care with the Resident/Fellow, if applicable. I also have reviewed and agree with the assessment and plan as stated above and agree with all of its relevant components. Gabe Arceo MD documented in this encounter [facility] 04-08-2012 History of Past i llness Narrative Problem Noted Date Resolved Date bloody nipple discharge 04/08/2012 04/15/2012 Mastitis 04/08/2012 04/15/2012 Severe preeclampsia 04/05/2011 04/20/2011 Advanced maternal age 1012/28/2010 04/20/2011 documented as of this encounter (statuses as of 08/28/2021) [facility] History of Past illness Narrative* Problem Noted Date Resolved Date bloody nipple discharge 04/08/2012 04/15/2012 Mastitis 04/08/2012 04/15/2012 Severe preeclampsia 04/05/2011 04/20/2011 Advanced maternal age 1012/28/2010 04/20/2011 documented as of this encounter (statuses as of 03/29/2022) [facility] History of Past illness Narrative* Problem Noted Date Resolved Date bloody nipple discharge 04/08/2012 04/15/2012 Mastitis 04/08/2012 04/15/2012 Severe preeclampsia 04/05/2011 04/20/2011 Advanced maternal age 1012/28/2010 04/20/2011 documented as of this encounter (statuses as of 05/03/2022) [facility] History of Past illness Narrative* Problem Noted Date Resolved Date bloody nipple discharge 04/08/2012 04/15/2012 Mastitis 04/08/2012 04/15/2012 Severe preeclampsia 04/05/2011 04/20/2011 Advanced maternal age 1012/28/2010 04/20/2011 documented as of this encounter (statuses as of 08/16/2022) [facility] History of Past illness Narrative* Problem Noted Date Diagnosed Date Resolved Date bloody nipple discharge 04/08/2012 04/15/2012 Mastitis 04/08/2012 04/15/2012 Severe preeclampsia 04/05/2011 04/20/19 12 Advanced maternal age 1012/28/20102011 documented as of this encounter (statuses as of 01/13/2023) [facility] History of Past illness Narrative* Problem Noted Date Diagnosed Date Resolved Date bloody nipple discharge 04/08/2012 04/15/2012 Mastitis 04/08/2012 04/15/2012 Severe preeclampsia 04/05/2011 04/20/19 12 Advanced maternal age 1012/28/20102011 documented as of this encounter (statuses as of 02/12/2023) [facility] History of Past illness Narrative* Problem Noted Date Diagnosed Date Resolved Date bloody nipple discharge 04/08/2012 04/15/2012 Mastitis 04/08/2012 04/15/2012 Severe preeclampsia 04/05/2011 04/20/19 12 Advanced maternal age 1012/28/20102011 documented as of this encounter (statuses as of 06/04/2023) [facility] History of Past illness Narrative* Problem Noted Date Diagnosed Date Resolved Date bloody nipple discharge 04/08/2012 04/15/2012 Mastitis 04/08/2012 04/15/2012 Severe preeclampsia 04/05/2011 04/20/19 12 Advanced maternal age 1012/28/20102011 documented as of this encounter (statuses as of 06/10/2023) [facility] of Past illness Narrative* Problem Noted Date Diagnosed Date Resolved Date bloody nipple discharge 04/08/2012 04/15/2012 Mastitis 04/08/2012 04/15/2012 Severe preeclampsia 04/05/2011 04/20/19 12 Advanced maternal age 1012/28/20102011 documented as of this encounter (statuses as of 06/11/2023) [facility] History of Past illness Narrative* Problem Noted Date Diagnosed Date Resolved Date bloody nipple discharge 04/08/2012 04/15/2012 Mastitis 04/08/2012 04/15/2012 Severe preeclampsia 04/05/2011 04/20/19 12 Advanced maternal age 1012/28/20102011 documented as of this encounter (statuses as of 06/13/2023) [facility] noteNo assessment information availableWWestern [facility] Work Phone: [facility]* Diagnosis Encounter for gynecological examination without abnormal finding- Primary Routine gynecological examination Encounter for screening for malignant neoplasm of cervix Screening for malignant neoplasm of the cervix Special screening examination for human papillomavirus (HPV) Encounter for screening mammogram for malignant neoplasm of breast Other screening mammogram [facility] Diagnosis Encounter for screening [facility]ogram for breast cancer [facility] Diagnosis Encounter for screening mammogram for malignant neoplasm of breast- Primary Other screening mammogram [facility] Diagnosis Encounter for gynecological examination (general) (routine) without abnormal findings- Primary Encounter for screening mammogram for breast cancer [facility] Diagnosis Encounter for screening mammogram for malignant neoplasm of breast Other screening mammogram [facility] Diagnosis Encounter for gynecological examination (general) (routine) without abnormal findings- Primary Encounter for screening mammogram for breast cancer Vaginal dryness Other specified symptom associated with female genital organs [facility] Encounter for screening [facility]ogram for breast cancer [facility] Diagnosis Bilateral foot pain- Primary Pain in limb [facility] Diagnosis Hallux valgus of left foot- Primary Hallux rigidus of left foot Hallux rigidus Hallux valgus of right foot Hallux rigidus of right foot Hallux rigidus Diminished pulses in lower extremity Other symptoms involving cardiovascular system [facility] Diagnosis Bilateral foot pain Pain in limb [facility] Diagnosis Vitamin D deficiency- Primary Unspecified vitamin D deficiency Annual physical exam Routine general medical examination at a health care facility [facility] Diagnosis Annual physical exam- Primary Routine general medical examination at a health care facility Elevated blood pressure reading Elevated blood pressure reading without diagnosis of hypertension Asymptomatic varicose veins of right lower extremity Asymptomatic varicose veins Ocular rosacea Rosacea Family history of malignant neoplasm of skin Bunion Encounter for immunization Need for other specified prophylactic vaccination against single bacterial disease Screening for depression Encounter for screening examination for other mental health and behavioral disorders [facility] Diagnosis Elevated BP without diagnosis of hypertension- Primary Elevated liver enzymes Other nonspecific abnormal serum enzyme levels documented in this encounter [facility] for referral (narrative)* Diagnostic Procedure Only (Routine) - Pending Review Specialty Diagnoses / Procedures Referred By Farzad t Referred To Contact [facility] Diagnoses Encounter for screening mammogram for malignant neoplasm of breast Procedures MAIDA SCREENING SCREENING MAMMOGRAPHY BI 2-VIEW BREAST INC CAD Hernan Bone MD [address] [place] [address] [facility] [address] [id number] Referral ID Status Reason Start Date Expiration Date Visits Requested Visits Authorized [id number] Pending Review Auto-Generat ed Referral 05/03/2022 06/02/2023 1 1 [facility] for referral (narrative)* Diagnostic Procedure Only (Routine) - Closed Specialty Diagnoses / Procedures Referred By Farzad pineda Referred To Contact [facility] Diagnoses Encounter for screening mammogram for breast cancer Procedures MAIDA SCREENING SCREENING MAMMOGRAPHY BI 2-VIEW BREAST INC CAD Ava Gutiérrez MD [address] [place] [address] [facility] [address] [place] [address] Referral ID Status Reason Start Date Expiration Date V isits Requested Visits Authorized [id number] Closed Auto-Generate d Referral 05/03/2021 06/02/2022 1 1 [facility] for referral (narrative)* Diagnostic Procedure Only (Routine) - Authorized Specialty Diagnoses / Procedures Referred By Farzad t Referred To Contact [facility] Diagnoses Encounter for screening mammogram for malignant neoplasm of breast Procedures MAIDA SCREENING SCREENING MAMMOGRAPHY BI 2-VIEW BREAST INC CAD Constance Padilla APRN.[facility] [address] [place] [address] [facility] [address] [place] [address] Referral ID Status Reason Start Date Expiration Date Visits Requested Visits Authorized [id number] Authorized Auto-Generat ed Referral 06/04/2023 07/03/2024 1 1 [facility] for referral (narrative)* Diagnostic Procedure Only (Routine) - Authorized Specialty Diagnoses / Procedures Referred By Farzad t Referred To Contact [facility] Diagnoses Encounter for screening mammogram for breast cancer Procedures MAIDA SCREENING SCREENING MAMMOGRAPHY BI 2-VIEW BREAST INC CAD Constance Padilla APRN.[facility] PA[facility]OOK [address] [place] [address] [facility] [address] [place] [address] Referral ID Status Reason Start Date Expiration Date Visits Requested Visits Authorized [id number] Authorized Auto-Generat ed Referral 06/10/2023 07/09/2024 1 1 [facility] for referral (narrative)No reason for referral information [facility] Work Phone: [facility] Narrative* Diagnostic Procedure Only (Routine) - Closed Specialty Diagnoses / Procedures Referred By Farzad t Referred To Contact [facility] Diagnoses Encounter for screening mammogram for breast cancer Procedures MAIDA SCREENING SCREENING MAMMOGRAPHY BI 2-VIEW BREAST INC CAD Ava Gutiérrez MD [address] [place] [address] [facility] [address] [place] [address] Referral ID Status Reason Start Date Expiration Date V isits Requested Visits Authorized [id number] Closed Auto-Generate d Referral 05/03/2021 06/02/2022 1 1 [facility] for visit Narrative* Diagnostic Procedure Only (Routine) - Closed Specialty Diagnoses / Procedures Referred By Contac t Referred To Contact [facility] Diagnoses Encounter for screening mammogram for malignant neoplasm of breast Procedures MAIDA SCREENING SCREENING MAMMOGRAPHY BI 2-VIEW BREAST INC CAD Constance Padilla APRN.[facility] COOK [address] [place] [address] [facility] [address] [place] [address] Referral ID Status Reason Start Date Expiration Date V isits Requested Visits Authorized [id number] Closed Auto-Generate d Referral 06/04/2023 07/03/2024 1 1 [facility] for visit Narrative* Diagnostic Procedure Only (Routine) - Closed Specialty Diagnoses / Procedures Referred By Contac t Referred To Contact [facility] Diagnoses Encounter for screening mammogram for breast cancer Procedures MAIDA SCREENING SCREENING MAMMOGRAPHY BI 2-VIEW BREAST INC CAD Constance Padilla APRN.[facility] PASTR[facility] COOK [address] [place] [address] Phone: tel: fax: [facility] [address] [place] [address] Referral ID Status Reason Start Date Expiration Date V isits Requested Visits Authorized [id number] Closed Auto-Generate d Referral 06/10/2023 07/09/2024 1 1 [facility] for visit Narrative* Diagnostic Procedure Only (Routine) - Closed Specialty Diagnoses / Procedures Referred By Farzad t Referred To Contact [facility] IMAGING Diagnoses Bilateral foot pain Procedures XR FOOT GENERAL 3V AP/LAT/OBL BILATERAL RADEX FOOT COMPLETE MINIMUM 3 VIEWS Violet Hyman [address] [place] [address] Phone: tel: fax: [place] [address] Referral ID Status Reason Start Date Expiration Date V isits Requested Visits Authorized [id number] Closed Auto-Generate d Referral 07/14/2024 08/13/2025 1 1 [facility] Chief Complaint Chief Complaint Description Start Date left thumb finger pain Preliminary chief co mplaint data, not yet signed by the author as of Instructions Instruction Description Start Date CompletedPlease follow-up wi th Primary Care Physician or Decorating And Assembly Supervisor for treatment or adjustment of medication regarding elevated blood pressure. Advance Directives Documents on File Type Date Recorded Patient Fire[employer] Layer Expl anation Advance Directive(s) 07/11/2020 11:39 AM Assessments There may be information available, but it has not been provided by the sender. Review of System There may be information available, but it has not been provided by the sender. Family History There may be information available, but it has not been provided by the sender.No Family History Records Found History of Present Illness There may be information available, but it has not been provided by the sender. Summary Purpose Chief Complaint and Reason for Visit Chief Complaint Admit Date CONCERN FOR UTI September 18, 2024 7:33 am Additional Source Comments Reason for Visit (unrecogniz ed section and content) Reason For Visit Description New - 1st visit with practice Preliminary reason f or visit data, not yet signed by the author as of left thumb finger pain Reason Comments Refill Request Reason Onset Date Comments Yearly Exam 05/03/2022 Reason Comments Orders Reason Comments Yearly Exam Reason Comments Well Woman Reason Comments New Pain Reason Comments Yearly Exam Annual Physical Reason Comments BP Check Goals (unrecognized section and content) Goals may be documented in a n alternate sectionGoals may be documented in an alternate section Source Comments (unrecognize d section and content) In the event this informatio n is protected by the Federal Confidentiality of Alcohol and Drug Abuse Patient Records regulations: The Federal rules restrict any use of the information to criminally investigate or prosecute any alcohol or drug abuse patient.[facility] the event this information is protected by the Federal Confidentiality of Alcohol and Drug Abuse Patient Records regulations: The Federal rules restrict any use of the information to criminally investigate or prosecute any alcohol or drug abuse patient.[facility] the event this information is protected by the Federal Confidentiality of Alcohol and Drug Abuse Patient Records regulations: The Federal rules restrict any use of the information to criminally investigate or prosecute any alcohol or drug abuse patient.[facility] the event this information is protected by the Federal Confidentiality of Alcohol and Drug Abuse Patient Records regulations: The Federal rules restrict any use of the information to criminally investigate or prosecute any alcohol or drug abuse patient.[facility] HospitalIn the event this information is protected by the Federal Confidentiality of Alcohol and Drug Abuse Patient Records regulations: The Federal rules restrict any use of the information to criminally investigate or prosecute any alcohol or drug abuse patient.[facility] HospitalIn the event this information is protected by the Federal Confidentiality of Alcohol and Drug Abuse Patient Records regulations: The Federal rules restrict any use of the information to criminally investigate or prosecute any alcohol or drug abuse patient.[facility] Hospital[facility] the event this information is protected by the Federal Confidentiality of Alcohol and Drug Abuse Patient Records regulations: The Federal rules restrict any use of the information to criminally investigate or prosecute any alcohol or drug abuse patient.[facility] Hospital[facility] the event this information is protected by the Federal Confidentiality of Alcohol and Drug Abuse Patient Records regulations: The Federal rules restrict any use of the information to criminally investigate or prosecute any alcohol or drug abuse patient.[facility] Hospital[facility] the event this information is protected by the Federal Confidentiality of Alcohol and Drug Abuse Patient Records regulations: The Federal rules restrict any use of the information to criminally investigate or prosecute any alcohol or drug abuse patient.[facility] Hospital[facility] the event this information is protected by the Federal Confidentiality of Alcohol and Drug Abuse Patient Records regulations: The Federal rules restrict any use of the information to criminally investigate or prosecute any alcohol or drug abuse patient.[facility] HospitalIn the event this information is protected by the Federal Confidentiality of Alcohol and Drug Abuse Patient Records regulations: The Federal rules restrict any use of the information to criminally investigate or prosecute any alcohol or drug abuse patient.[facility] HospitalIn the event this information is protected by the Federal Confidentiality of Alcohol and Drug Abuse Patient Records regulations: The Federal rules restrict any use of the information to criminally investigate or prosecute any alcohol or drug abuse patient.[facility] HospitalIn the event this information is protected by the Federal Confidentiality of Alcohol and Drug Abuse Patient Records regulations: The Federal rules restrict any use of the information to criminally investigate or prosecute any alcohol or drug abuse patient.[facility] HospitalIn the event this information is protected by the Federal Confidentiality of Alcohol and Drug Abuse Patient Records regulations: The Federal rules restrict any use of the information to criminally investigate or prosecute any alcohol or drug abuse patient.[facility] HospitalIn the event this information is protected by the Federal Confidentiality of Alcohol and Drug Abuse Patient Records regulations: The Federal rules restrict any use of the information to criminally investigate or prosecute any alcohol or drug abuse patient.[facility] HospitalIn the event this information is protected by the Federal Confidentiality of Alcohol and Drug Abuse Patient Records regulations: The Federal rules restrict any use of the information to criminally investigate or prosecute any alcohol or drug abuse patient.[facility] HospitalIn the event this information is protected by the Federal Confidentiality of Alcohol and Drug Abuse Patient Records regulations: The Federal rules restrict any use of the information to criminally investigate or prosecute any alcohol or drug abuse patient.[facility] HospitalIn the event this information is protected by the Federal Confidentiality of Alcohol and Drug Abuse Patient Records regulations: The Federal rules restrict any use of the information to criminally investigate or prosecute any alcohol or drug abuse patient.[facility] HospitalIn the event this information is protected by the Federal Confidentiality of Alcohol and Drug Abuse Patient Records regulations: The Federal rules restrict any use of the information to criminally investigate or prosecute any alcohol or drug abuse patient.[facility] HospitalIn the event this information is protected by the Federal Confidentiality of Alcohol and Drug Abuse Patient Records regulations: The Federal rules restrict any use of the information to criminally investigate or prosecute any alcohol or drug abuse patient.[facility] HospitalIn the event this information is protected by the Federal Confidentiality of Alcohol and Drug Abuse Patient Records regulations: The Federal rules restrict any use of the information to criminally investigate or prosecute any alcohol or drug abuse patient.[facility] HospitalIn the event this information is protected by the Federal Confidentiality of Alcohol and Drug Abuse Patient Records regulations: The Federal rules restrict any use of the information to criminally investigate or prosecute any alcohol or drug abuse patient.[facility] Care Teams (unrecognized sec tion and content) Supervisor Publications Relationship Specialty Start Date End Date Delilah Devries MD [address] [place] [address] PCP - General Internal Medicine 01/29/14 Supervisor Publications Relationship Specialty Start Date End Date Delilah Devries MD [address] [place], [place] PCP - General Internal Medicine 01/29/14 Supervisor Publications Relationship Specialty Start Date End Date Delilah Devries MD [address] [facility] [place] [address] PCP - General Internal Medicine 01/29/14 Supervisor Publications Relationship Specialty Start Date End Date Delilah Devries MD [address] [place] [address] PCP - General Internal Medicine 01/29/14 Supervisor Publications Relationship Specialty Start Date End Date Delilah Devries MD [address] [place] [address] PCP - General Internal Medicine 01/29/14 Supervisor Publications Relationship Specialty Start Date End Date Delilah Devries MD [address] [place] [address] PCP - General Internal Medicine 01/29/14 Supervisor Publications Relationship Specialty Start Date End Date Delilah Devries MD [address] [place] [address] PCP - General Internal Medicine 01/29/14 Supervisor Publications Relationship Specialty [place] [address] [place] [address], [place] [address] PCP - General Internal Medicine 01/29/14 Supervisor Publications Relationship Specialty Start Date End Date Delilah Devries MD [address] [place] [address] PCP - General Internal Medicine 01/29/14 Supervisor Publications Relationship Specialty Start Date End Date Delilah Devries MD [address] [place] [address] PCP - General Internal Medicine 01/29/14 Supervisor Publications Relationship Specialty Start Date End Date Delilah Devries MD [address] [place] [address] PCP - General Internal Medicine 01/29/14 Yudi Franco APRN.[facility] COOK [address] [place] [address] Retail Sales Associate Bilingual Internal Medicine 02/16/24 Supervisor Publications Relationship Specialty Start Date End Date Delilah Devries MD [address] [place] [address] PCP - General Internal Medicine 01/29/14 Yudi Franco APRN.[facility] COOK [address] [place] [address] Retail Sales Associate Bilingual Internal Medicine 02/16/24 Supervisor Publications Relationship Specialty Start Date End Date Delilah Devries MD [address] [place] [address] PCP - General Internal Medicine 01/29/14 Yudi Franco APRN.[facility] COOK [address] [place] [address] Retail Sales Associate Bilingual Internal Medicine 02/16/24 Supervisor Publications Relationship Specialty Start Date End Date Delilah Devries MD [address] [place] [address] PCP - General Internal Medicine 01/29/14 Yudi Franco APRN.[facility] PASTRY COOK [address] [facility] [address] Retail Sales Associate Bilingual Internal Medicine 02/16/24 Supervisor Publications Relationship Specialty Start Date End Date Delilah Devries MD [address] [place] [address] PCP - General Internal Medicine 01/29/14 Yudi Franco APRN.[facility] PASTR[facility] COOK [address] [facility] [address] Retail Sales Associate Bilingual Internal Medicine 02/16/24 Supervisor Publications Relationship Specialty Start Date End Date Delilah Devries MD [address] [place] [address] PCP - General Internal Medicine 01/29/14 Yudi Franco APRN.[facility] PASTR[facility] COOK [address] [facility] [place] [address] Retail Sales Associate Bilingual Internal Medicine 02/16/24 Supervisor Publications Relationship Specialty Start Date End Date Delilah Devries MD [address] [place] [address] PCP - General Internal Medicine 01/29/14 Yudi Franco APRN.[facility] PASTR[facility] COOK [address] [facility] [address] Retail Sales Associate Bilingual Internal Medicine 02/16/24 Supervisor Publications Relationship Specialty Start Date End Date Delilah Devries MD [address] [facility] [place] [address] PCP - General Internal Medicine 01/29/14 Yudi Franco APRN.[facility] PASTR[facility] COOK [address] [place] [address] Retail Sales Associate Bilingual Internal Medicine 02/16/24 Supervisor Publications Relationship Specialty Start Date End Date Delilah Devries MD [address] [place] [address] PCP - General Internal Medicine 01/29/14 Yudi Franco APRN.[facility] PASTR[facility] COOK [address] [place] [address] Retail Sales Associate Bilingual Internal Medicine 02/16/24 Supervisor Publications Relationship Specialty Start Date End Date Delilah Devries MD [address] [place] [address] PCP - General Internal Medicine 01/29/14 Yudi Franco TOBACCO FARMWORKER.[facility] PASTR[facility] COOK [address] [place] [address] Retail Sales Associate Bilingual Internal Medicine 02/16/24 Supervisor Publications Relationship Specialty Start Date End Date Delilah Devries MD [address] [place] [address] PCP - General Internal Medicine 01/29/14 Yudi Franco APRN.[facility] PASTR[facility] COOK [address] [place] [address] Retail Sales Associate Bilingual Internal Medicine 02/16/24 Team Status: Active Member Role/Relationship Status Dates No Primary Care Physician Family Provider Active Dr. Delilah Devries MD Primary Care Provider Active Team Status: Inactive Member Role/Relationship Status Dates Dr. Delilah Devries MD Primary Care Provider Active Start: September 18, 2024 End: September 18, 2024 Dr. Delilah Devries MD Referring Provider Active Start: September 18, 2024 End: September 18, 2024 Alejandro PATEL PA Attending Provider Active Sta rt: September 18, 2024 End: September 18, 2024 INFORMATION SOURCE (unrecogn ized section and content) DATE CREATED AUTHOR 09/08/[address] [facility] FOR RECORDS PERTAINING TO PATIENTS WHO ARE OR HAVE BEEN ENROLLED IN A CHEMICAL DEPENDENCY/SUBSTANCEABUSE PROGRAM, SOME INFORMATION MAY BE OMITTED. This clinical summary was aggregated from multiple sources. Caution should be exercised in using it in the provision of clinical care. This summary normalizes information from multiple sources, and as a consequence, information in this document may materially change the coding, format and clinical context of patient data. In addition, data may be omitted in some cases. CLINICAL DECISIONS SHOULD BE BASED ON THE PRIMARY CLINICAL RECORDS. [employer] [facility]. provides no warranty or guarantee of the accuracy or completeness of information in this document.
== END | disposition home or self-care (01) ==
LOC: LABSPEC 13:10
PROVIDERS: PCP Internal Medicine; Referring Provider Physician Assistant Surgical; Visit Provider Physician Assistant Surgical
DX: R82.90 Unspecified abnormal findings in urine (principal)
CPT/HCPCS: 87077; 87086; 87088; 87186

== ENCOUNTER → 2024-09-30 | Outpatient (CLI) | payer OTHER, SELFPAY | END | disposition home or self-care (01) | LOC: LABSPEC 08:39 | PROVIDERS: PCP Internal Medicine; Visit Provider Physician Assistant | DX: R82.90 Unspecified abnormal findings in urine (principal) | CPT/HCPCS: 87086; 87088 ==